=== PATIENT | male | born 1965 | race African-American/Black ===

== ENCOUNTER 2020-03-20 10:04 | Outpatient (CLI) | payer MEDICARE, SELFPAY ==
[2020-03-20 10:34] LABS: Basophils Absolute Auto 0.1 K/mm3 (0.0-0.1); Basophils Percent Auto 0.9 % (0.2-1.2); Eosinophils Absolute Auto 0.1 K/mm3 (0-0.3); Eosinophils Percent Auto 1.5 % (0-4.4); Hematocrit 38.6 % (42.0-52.0); Hemoglobin 12.9 g/dL (14.0-18.0); Immature Granulocyte Absolute 0.01 K/mm3 (0.00-0.031); Immature Granulocyte Percent A 0.2 % (0-0.5); Lymphocytes Absolute Auto 1.81 K/mm3 (0.9-3.2); Lymphocytes Percent Auto 33.6 % (18.3-44.2); Mean Corpuscular HGB Conc 33.4 g/dl (32-36); Mean Corpuscular Hemoglobin 32.8 pg (26-34); Mean Corpuscular Volume 98.2 fl (80-100); Mean Platelet Volume 9.8 fl (7.4-10.4); Monocytes Absolute Auto 0.5 K/mm3 (0.1-0.6); Monocytes Percent Auto 9.5 % (2.6-8.5); Neutrophils Absolute Auto 2.9 K/mm3 (1.3-6.7); Neutrophils Percent Auto 54.3 % (45.5-73.1); Platelet Count Result 322 k/mm3 (150-375); Red Blood Count 3.93 M/mm3 (4.6-6.20); Red Cell Distribution Width 13.9 % (11.5-14.5); White Blood Count 5.4 K/mm3 (4.5-10.0)
[2020-03-20 10:43] LABS: INR 1.1; Prothrombin Time 14.3 Seconds (11.1-14.7)
[2020-03-20 10:49] LABS: Alanine Aminotransferase 86 U/L (4-50); Albumin Level 3.8 g/dL (3.5-5.1); Alkaline Phosphatase 159 U/L (38-126); Anion Gap 9 mmol/L (8-16); Aspartate Amino Transferase 137 U/L (17-59); Bilirubin,Total 0.5 mg/dL (0.2-1.3); Blood Urea Nitrogen 12 mg/dL (9-20); Calcium 8.4 mg/dL (8.4-10.2); Carbon Dioxide 30 mmol/L (22-30); Chloride 100 mmol/L (98-107); Estimated Glomerular Filt Rate > 60; Glucose 110 mg/dL (75-110); Potassium 3.5 mmol/L (3.4-5.0); Sodium 139 mmol/L (137-145)
[2020-03-20 11:05] LABS: Iron 53 ug/dL (49-181)
[2020-03-20 11:14] LABS: Percent Iron Saturation 21 % (20-50)
[2020-03-20 11:37] LABS: Hepatitis B Surface Antigen Negative (Negative)
[2020-03-20 11:42] LABS: HAV RESULT Negative (Negative); Hepatitis B Core IgM Result Negative (Negative)
[2020-03-20 11:54] LABS: Hepatitis C Virus Antibody Negative (Negative)
[2020-03-24 12:39] LABS: Mitochondrial (M2) Ab (IgG) <=20.0 U (<=20.0)
[2020-03-24 13:25] LABS: Ceruloplasmin 28 mg/dL (18-36)
[2020-03-25 11:50] LABS: Tissue Transglutaminase IgA Ab 1 U/mL (<4); Tissue Transglutaminase IgG Ab 4 U/mL (<6)
[2020-03-27 15:07] LABS: ALT 66 U/L (9-46); Alpha-2-Macroglobulin 225 mg/dL (106-279); Apolipoprotein A1 232 mg/dL (94-176); Fibrosis Score 0.43; Fibrosis Stage F1-F2; GGT 697 U/L (3-85); Haptoglobin 96 mg/dL (43-212); Necroinflammat Act Grade A1-A2; Total Bilirubin 0.5 mg/dL (0.2-1.2)
== END 2020-03-20 10:05 | disposition home or self-care (01) ==
LOC: ANHLAB 10:08
PROVIDERS: PCP Internal Medicine Gastroenterology; Visit Provider Internal Medicine Gastroenterology
DX: R74.8 Abnormal levels of other serum enzymes (principal); R10.9 Unspecified abdominal pain
CPT/HCPCS: 36415; 80053; 80074; 81596; 82104; 82390; 82728; 83516; 83520; 83540; 83550; 85025; 85610; 86038

== ENCOUNTER 2024-03-23 09:26 | Outpatient (CLI) | payer MEDICARE, SELFPAY ==
--- NOTE | ~2024-03-23 | XR_ITS ---
Right Knee Technique: AP, lateral, and oblique views were obtained. Clinical History: Pain Findings: No fracture or dislocation is seen. Osseous alignment is anatomic. Joint spaces are preserv ed without degenerative or erosive change. Soft tissues are unremarkable. No joint effusion is seen. Impression: Unremarkable right knee radiographs. Reviewed, dictated and finalized at location . Impression: Unremarkable right knee radiographs.
--- NOTE | ~2024-03-23 | XR_ITS ---
AP view of the pelvis and and AP and lateral views of the right hip Clinical history: Pain Findings: No acute fracture or dislocation is seen. Osseous alignment is anatomic. Bilateral hip and SI joint spaces are preserved. Soft tissues are unremarkable. Impression: No significant abnormality is seen. Reviewed, dictated and finalized at [facility]. Impression: No significant abnormality is seen.
== END 2024-03-23 09:27 | disposition home or self-care (01) ==
PROVIDERS: Visit Provider Physician Assistant Surgical
DX: M25.551 Pain in right hip (principal); M25.561 Pain in right knee
CPT/HCPCS: 73502; 73564

== ENCOUNTER 2024-07-02 10:48 | Outpatient (CLI) | payer MEDICARE, SELFPAY ==
--- NOTE | ~2024-07-02 | XR_ITS ---
EXAMINATION: XR lumbar spine min 4V DATE: 07/02/2024 11:12 INDICATION: Radiculopathy, lumbar region. Low back pain. Numbness in the legs. TECHNIQUE: 5 views of lumbar spine were obtained. COMPARISON: Chest 2 views 06/01/2017 FINDINGS: S1 is a transitional segment. There is 3 degrees levocurvature of lumbar spine. There is 3 mm anterolisthesis of L4 on L5 and 3 mm retrolisthesis of L5 on S1. Vertebral body heights are normal . There is mildly decreased disc height at L3-L4 and severely decreased disc height from L4-L5 throug h S1-S2. There is multilevel facet joint osteoarthritis, severe in lower lumbar spine. IMPRESSION: 1. Severe lumbar spondylosis. Reviewed, dictated and finalized at location A. [employer]
== END 2024-07-02 10:49 | disposition home or self-care (01) ==
PROVIDERS: PCP Orthopaedic Surgery; Visit Provider Orthopaedic Surgery
DX: M54.16 Radiculopathy, lumbar region (principal); M47.816 Spondylosis without myelopathy or radiculopathy, lumbar region
CPT/HCPCS: 72110

== ENCOUNTER 2025-02-28 10:55 | Inpatient (IN) | payer MEDICARE, MEDICAID, SELFPAY ==
[2025-02-28] VITALS (10 sets, daily range): BP systolic 125–203; BP diastolic 71–110; PULSE 69–104; RESP 14–19; TEMP 36.6–36.9; O2SAT 97–100; BMI 16.9
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
--- NOTE | ~2025-02-28 | XR_ITS ---
EXAMINATION: XR chest 2V, 03/01/2025 8:15 CDT HISTORY: weight loss, smoker COMPARISON: No comparisons available. Technique: 2 views obtained. Findings: The lungs are clear, no effusion. No pneumothorax. Heart is normal size. Mediastinal and hilar contours are within normal limits. Bony thorax no acute abnormality. Impression: No acute cardiopulmonary abnormality. Reviewed, dictated and finalized at location P. Impression: No acute cardiopulmonary abnormality.
[2025-02-28 11:45] LABS: Hematocrit 39.6 % (42.0-52.0); Hemoglobin 12.9 g/dL (14.0-18.0); Immature Granulocyte Percent A 0.4 % (0-0.5); Lymphocytes Absolute Auto 0.89 K/mm3 (0.9-3.2); Mean Corpuscular HGB Conc 32.6 g/dl (32-36); Mean Corpuscular Hemoglobin 33.9 pg (26-34); Mean Corpuscular Volume 104.2 fl (80-100); Nucleated Red Blood Cells Absolute Auto 0.000 K/mm3 (0.0-0.012); Nucleated Red Blood Cells Perc 0.0 % (0.0-0.2); Platelet Count Result 299 k/mm3 (150-375); Red Blood Count 3.80 M/mm3 (4.6-6.20); White Blood Count 8.5 K/mm3 (4.5-10.0)
[2025-02-28 11:57] LABS: Alanine Aminotransferase 9 U/L (6-50); Albumin Level 3.7 g/dL (3.5-5.1); Alkaline Phosphatase 74 U/L (38-126); Anion Gap 12 mmol/L (4-12); Aspartate Amino Transferase 24 U/L (17-59); Bilirubin,Total 0.9 mg/dL (0.2-1.3); Blood Urea Nitrogen 7 mg/dL (9-20); Calcium 8.2 mg/dL (8.4-10.2); Carbon Dioxide 23 mmol/L (22-30); Chloride 98 mmol/L (98-107); Estimated CRCL calculation 83 ml/min; Estimated Glomerular Filt Rate > 60; Glucose 107 mg/dL (65-110); Lipase 474 U/L (23-300); Potassium 3.8 mmol/L (3.4-5.0); Sodium 133 mmol/L (137-145); Total Protein 7.9 g/dL (6.3-8.2)
--- NOTE | 2025-02-28 13:39 | ED.GENADULT ---
HPI - General Adult General Chief complaint: Abdominal Pain Stated complaint: abdominal pain Time Seen by Provider: 02/28/25 13:17 History of Present Illness HPI narrative: 59-year-old male with history alcoholism presents to the emergency department for evaluation for persistent abdominal pain consistent with previous episodes of pancreatitis. Patient states that he did quit drinking alcohol approximately 3 days ago. Patient did express interest in quitting alcohol completely. Patient has had approximately 40 lb of weight loss in the last 3 months. Patient has had severe muscular atrophy and is very cachectic looking at evaluation. Patient states he has had decreased p.o. intake and has total loss of appetite. Patient states when he tries to drink Ensure milkshakes that he has persistent nausea and vomiting. Related Data Home Medications ?Medication ?Instructions ?Recorded ?Confirmed ?Last Taken ?Type albuterol sulfate 2.5 mg/3 mL 2.5 mg inhalation Q4-6H PRN 03/10/20 02/28/25 Unknown History (0.083 %) solution for nebulization shortness of breath or wheezing multivitamin 1 tablet PO DAILY 03/10/20 02/28/25 Unknown History oxycodone-acetaminophen 5 mg-325 ml PO .every 6 hrs PRN severe pain 03/10/20 09/23/24 Unknown History mg/5 mL oral solution (scale score 7-10) losartan 50 mg tablet 50 mg PO DAILY 09/21/24 02/28/25 Unknown History Allergies Allergy/AdvReac Type Severity Reaction Status Date / Time No Known Allergies Allergy Verified 02/28/25 14:32 Review of Systems Review of Systems: All systems reviewed & are unremarkable except as noted in HPI and below PMFSH Past Medical History Medical History Easy bruising Poor circulation Migraine Asthma Mood disorder Depression Macrocytic anemia Frequent loose stools Alcohol dependence HTN (hypertension) Hepatic steatosis Elevated liver enzymes Family History Family History Father Cancer Gout Hypertension Mother Cancer Asthma Hypertension Social History Social History Smoking status: Current every day smoker Tobacco type: cigarettes Second hand tobacco smoke exposure: Yes Alcohol intake: former Substance use: never Do You Feel Safe in your Home?: Yes Lack of Transportation: No Lack of Food: Never True Current Housing: I Have Housing Concerned About Future Housing: No Difficulty Paying Gas/Electric Bills: No Difficulty Paying for Meds: No Currently Unemployed: No Education: High School Diploma/GED Difficulty w/ Childcare or Family Care: No Living arrangements: with family Occupation/Education: retired Gender identity (if verbalized by the patient): Male Exam Narrative: APPEARANCE: Cachectic and ill-appearing HEAD: normocephalic, atraumatic. EYES: PERRLA/EOMI, conjunctivae clear. NOSE: Normal no drainage EARS:TMS clear with good light reflex. THROAT: Pharynx clear, no exudate. NECK: Supple. No adenopathy, no masses. RESPIRATORY: Airway patent, respirations nonlabored. Clear to auscultation bilaterally, no rales, rhonchi, wheezing. CARDIOVASCULAR: Regular rate and rhythm without murmurs rubs or gallops. ABDOMINAL: Diffuse epigastric tenderness to palpation MUSCULOSKELETAL: Moves all extremities. Strength/ROM intact, No edema, No calf tenderness. NEURO: Alert. Cranial nerves II through XII intact. Good gait. Good coordination SKIN: Warm, dry. Normal Color Course Vital Signs Vital signs: Vital Signs Temperature 98.5 F 02/28/25 11:30 Pulse Rate 82 02/28/25 11:30 Respiratory Rate 19 02/28/25 11:30 Blood Pressure 145/71 H 02/28/25 11:30 Pulse Oximetry 100 02/28/25 11:30 Oxygen Delivery Room Air 02/28/25 11:30 Temperature 98.5 F 02/28/25 11:30 Pulse Rate 81 02/28/25 18:29 Respiratory Rate 15 02/28/25 18:29 Blood Pressure 169/87 H 02/28/25 18:29 Pulse Oximetry 98 02/28/25 18:29 Oxygen Delivery Room Air 02/28/25 11:30 Medical Decision Making MDM Narrative Medical decision making narrative: 59-year-old male presents to the emergency department for evaluation for weight loss over the last few months along with decreased p.o. intake and abdominal pain. Patient is currently afebrile with no leukocytosis hemoglobin of 12.9. Patient has no significant abnormalities on his CMP but does have an elevated lipase of 474. UA was negative for infection but was +[address] abdomen pelvis shows likely acute on chronic interstitial pancreatitis with a 4 x 7 x 3.4 by 2.4 similar peripherally enhancing fluid collection position between the tail the pancreas in the stomach which could represent a chronic pseudocyst or more recent abscess or acute peripancreatic fluid collection. Extensive diverticulosis of the colon. Patient was treated with 2 L of lactated Ringer's. Patient was provided an IV Dilaudid for pain control. Patient will be admitted for pain control and further evaluation his acute pancreatitis. Patient will also need further evaluation for his persistent weight loss. Weight loss may just be secondary to decreased oral intake. Patient family updated on the plan for admission. Case was discussed with hospitalist patient was accepted for admission. Patient will be admitted to [facility]. Differential Diagnosis Differential Diagnosis: Colitis, diverticulitis, pancreatitis, necrotizing pancreatitis, pseudocyst, abscess, failure to thrive, UTI, malignancy Vital Signs Vital Signs: Vital Signs Temperature 98.5 F 02/28/25 11:30 Pulse Rate 82 02/28/25 11:30 Respiratory Rate 19 02/28/25 11:30 Blood Pressure 145/71 H 02/28/25 11:30 Pulse Oximetry 100 02/28/25 11:30 Oxygen Delivery Room Air 02/28/25 11:30 Temperature 98.5 F 02/28/25 11:30 Pulse Rate 81 02/28/25 18:29 Respiratory Rate 15 02/28/25 18:29 Blood Pressure 169/87 H 02/28/25 18:29 Pulse Oximetry 98 02/28/25 18:29 Oxygen Delivery Room Air 02/28/25 11:30 Lab Data Lab results reviewed: Yes I reviewed the patient's lab results. 02/28/25 11:38 02/28/25 11:38 Labs: Lab Results 02/28/25 02/28/25 Range/Units 11:38 14:33 WBC 8.5 (4.5-10.0) K/mm3 RBC 3.80 L (4.6-6.20) M/mm3 Hgb 12.9 L (14.0-18.0) g/dL Hct 39.6 L (42.0-52.0) % MCV 104.2 H (80-100) fl MCH 33.9 (26-34) pg MCHC 32.6 (32-36) g/dl RDW 14.0 (11.5-14.5) % Plt Count 299 (150-375) k/mm3 MPV 9.6 (7.4-10.4) fl Immature Gran % (Auto) 0.4 (0-0.5) % Neut % (Auto) 78.6 H (45.5-73.1) % Lymph % (Auto) 10.5 L (18.3-44.2) % [place] % (Auto) 9.5 H (2.6-8.5) % Eos % (Auto) 0.8 (0-4.4) % Baso % (Auto) 0.2 (0.2-1.2) % Lymph # (Auto) 0.89 L (0.9-3.2) K/mm3 [place] # (Auto) 0.8 H (0.1-0.6) K/mm3 Eos # (Auto) 0.1 (0-0.3) K/mm3 Baso # (Auto) 0.0 (0.0-0.1) K/mm3 Abs Immat Gran (auto) 0.03 (0.00-0.031) K/mm3 Absolute Neuts (auto) 6.7 (1.3-6.7) K/mm3 Absolute Nucleated RBC 0.000 (0.0-0.012) K/mm3 Nucleated RBC % 0.0 (0.0-0.2) % Sodium 133 L (137-145) mmol/L Potassium 3.8 (3.4-5.0) mmol/L Chloride 98 (98-107) mmol/L Carbon Dioxide 23 (22-30) mmol/L Anion Gap 12 (4-12) mmol/L BUN 7 L D (9-20) mg/dL Creatinine 0.72 (0.7-1.3) mg/dL Estim Creat Clear Calc 83 ml/min Estimated GFR > 60 (59 - ) Glucose 107 (65-110) mg/dL Calcium 8.2 L (8.4-10.2) mg/dL Total Bilirubin 0.9 (0.2-1.3) mg/dL AST 24 (17-59) U/L ALT 9 (6-50) U/L Alkaline Phosphatase 74 (38-126) U/L Total Protein 7.9 (6.3-8.2) g/dL Albumin 3.7 (3.5-5.1) g/dL Lipase 474 H (23-300) U/L Urine Color Yellow (Yellow) Urine Appearance Clear (Clear) Urine pH 6.0 (5.0-9.0) Ur Specific [place] 1.024 (1.001-1.035) Urine Protein Trace (Negative) mg/dL Urine Glucose (UA) Negative (Negative) mg/dL Urine Ketones 1+ H (Negative) mg/dL Ur Blood (Man) Negative (Negative) Urine Nitrate Negative (Negative) Urine Bilirubin Negative (Negative) Urine Urobilinogen 1.0 (<2.0) mg/dL Leukocyte Esterase Rfl Negative (Negative) NEILDA/UL Urine RBC 0-2 (0-2) /hpf Urine WBC 0-5 (0-3) /hpf Ur Squamous Epith Cells None seen (Few) /hpf Urine Bacteria None seen /hpf Urine Casts 0-2 Imaging Data Radiologist's impression: Impressions Abdomen/Pelvis CT 02/28/25 14:56 IMPRESSION: 1. Likely acute on chronic interstitial pancreatitis with 4.7 x 3.4 x 2.4 similar peripherally enhancing fluid collection positioned between the tail the pancreas and the stomach which could represent a chronic pseudocyst or more recent abscess or acute peripancreatic fluid collection. 2. Extensive diverticulosis throughout the colon. 3. Prostatomegaly. 4. Extensive atherosclerotic disease with segmental occlusion of the left common iliac artery which reconstitutes at the level of the bifurcation and additional severe stenosis at the left common femoral artery. Discharge Plan Discharge Clinical Impression: Pancreatitis, Abnormal weight loss, Muscular atrophy Patient Disposition: Still a Patient Condition: Serious
[2025-02-28 14:44] LABS: Add Urine Microscopic? YES; Appearance Urine Clear (Clear); Glucose Urine UA Negative (Negative); Leukocyte Esterase Ur Negative LEU/UL (Negative); Nitrate Urine Negative (Negative); Non Pathogenic Casts 0-2; Specific Grav Ur 1.024 (1.001-1.035)
[2025-02-28] MEDS: LACTATED RINGERS 1,000 ML 999 ML IV CONT (14:52)
[2025-02-28] MEDS: ONDANSETRON INJ 4 MG/2 ML VIAL IV PUSH ×2 (14:52→21:17)
[2025-02-28] MEDS: HYDROmorphone HCL INJ (*CRX) 1 MG/ML SYR 0.5 MG IV PUSH ×2 (15:57→21:17)
--- NOTE | 2025-02-28 18:39 | PC.NURSE ---
This patient, Willem Woodall, was admitted to [facility] Surg Room 317-01. Patient/family oriented to hospital policies and general routines including ID bracelet, bed and alarms, visiting hours, pain management, procedures, bathroom and other care routines, personal items, smoking policy, room service/diet, and visiting hours. Report called from Bridget in the ER. Information on how to activate the Rapid Response Team has been discussed. Patient/Family are encouraged to report perceived risks to care and to ask questions if they do not understand what they are told or what they should do.
[2025-02-28] MEDS: THIAMINE HCL 200 MG/2 ML VIAL 100 MG IV PUSH (21:27)
[2025-02-28] MEDS: PANTOPRAZOLE SODIUM IV 40 MG VIAL IV PUSH (21:27)
[2025-02-28] MEDS: LACTATED RINGERS 1,000 ML 150 ML IV CONT (21:27)
[2025-02-28] MEDS: FOLIC ACID 1 MG/0.2 ML INJ IV PUSH (21:39)
[2025-03-01 00:31] LABS: Cannabinoid Screen Urine Positive (Negative)
[2025-03-01] MEDS: HYDROmorphone HCL INJ (*CRX) 1 MG/ML SYR 0.5 MG IV PUSH ×3 (02:09→12:12)
[2025-03-01] MEDS: ONDANSETRON INJ 4 MG/2 ML VIAL IV PUSH ×4 (02:09→22:21)
[2025-03-01] MEDS: LACTATED RINGERS 1,000 ML 150 ML IV CONT ×3 (04:30→23:48)
[2025-03-01 05:56] VITALS: BP 173/73; PULSE 103; RESP 16; TEMP 36.3; O2SAT 100
[2025-03-01 07:11] LABS: Hematocrit 39.5 % (42.0-52.0); Hemoglobin 12.9 g/dL (14.0-18.0); Immature Granulocyte Percent A 0.4 % (0-0.5); Lymphocytes Absolute Auto 1.03 K/mm3 (0.9-3.2); Mean Corpuscular HGB Conc 32.7 g/dl (32-36); Mean Corpuscular Hemoglobin 34.3 pg (26-34); Mean Corpuscular Volume 105.1 fl (80-100); Nucleated Red Blood Cells Absolute Auto 0.000 K/mm3 (0.0-0.012); Nucleated Red Blood Cells Perc 0.0 % (0.0-0.2); Platelet Count Result 272 k/mm3 (150-375); Red Blood Count 3.76 M/mm3 (4.6-6.20); White Blood Count 9.7 K/mm3 (4.5-10.0)
[2025-03-01 07:32] LABS: Hypochromasia 1+
[2025-03-01 07:33] LABS: Crenated RBC 1+; Ovalocytes Occasional
[2025-03-01 07:35] LABS: Anion Gap 8 mmol/L (4-12); Blood Urea Nitrogen 5 mg/dL (9-20); CRP 3.9 mg/dL (<1.0); Calcium 8.4 mg/dL (8.4-10.2); Carbon Dioxide 25 mmol/L (22-30); Chloride 98 mmol/L (98-107); Estimated CRCL calculation 85 ml/min; Estimated Glomerular Filt Rate > 60; Glucose 72 mg/dL (65-110); Magnesium 1.2 mg/dL (1.6-2.3); Potassium 4.4 mmol/L (3.4-5.0); Sodium 131 mmol/L (137-145)
[2025-03-01 07:38] LABS: Procalcitonin 0.1 ng/mL; Schistocytes Rare
[2025-03-01 07:42] LABS: Hemoglobin A1C 4.4 % (<5.7)
[2025-03-01 07:52] LABS: Hepatitis B Surface Antigen Negative (Negative)
[2025-03-01 07:58] LABS: HAV RESULT Negative (Negative); Hepatitis B Core IgM Result Negative (Negative)
[2025-03-01 08:03] LABS: Thyroid Stimulating Hormone Reflex 3.000 uIU/mL (0.465-4.68)
--- NOTE | 2025-03-01 08:09 | P.HP_ITS ---
H&P: HPI History of Present Illness Date/Time: 03/01/25 08:09 Chief Complaint: Abdominal Pain Narrative: Willem Woodall is a 59-year-old male with a past medical history of alcohol dependence, hypertension, hepatic steatosis, asthma, migraines, and mood disorder who presents to the hospital with abdominal pain. Patient reports a longstanding history of alcohol abuse and typically drinks about half a pint of Radha but reports that he has not had any drinks the past 3 days. He states that he has been having nausea and upper abdominal discomfort for the past several months, worse over the past few days. Also endorsing associated nausea. Reports that he does not eat very much as he gets full quickly and has lost over 40 lb over the past few months. Denies any chest pain, shortness of breath, dysphagia, reflux, regurgitation, or urinary/bowel changes. Also denies any history of constipation or blood in the stool. Endorses cigarette smoking and marijuana use. ED Workup: 98.5? F, 81 pulse rate, 15 respiratory rate, 98% on room air, 169/87 WBC 8.5, HGB 12.9, HCT 39.6, PLT 299, sodium 133, potassium 3.8, carbon dioxide 23, BUN 7, creatinine 0.72, GFR> 60, LFTs WNL, lipase 474 UA: Not indicative of infection Abdomen/pelvis CT: likely acute on chronic pancreatitis, extensive diverticulosis, prostatomegaly, Extensive atherosclerotic disease with segmental occlusion of the left common iliac artery which reconstitutes at the level of the bifurcation and additional severe stenosis at the left common femoral artery Review of Systems Review of Systems: All systems reviewed & are unremarkable except as noted in HPI and below PMFSH Past Medical History Medical History Easy bruising Poor circulation Migraine Asthma Mood disorder Depression Macrocytic anemia Frequent loose stools Alcohol dependence HTN (hypertension) Hepatic steatosis Elevated liver enzymes Family History Family History Father Cancer Gout Hypertension Mother Cancer Asthma Hypertension Social History Social History Smoking packs per day: 1 Smoking cigarettes per day: 20.0 Smoking status: Current every day smoker Tobacco type: cigarettes Second hand tobacco smoke exposure: Yes Alcohol intake: former Drinks per week: 14 Substance use: never Substance use type: marijuana Do You Feel Safe in your Home?: Yes Lack of Transportation: No Lack of Food: Never True Current Housing: I Have Housing Concerned About Future Housing: No Difficulty Paying Gas/Electric Bills: No Difficulty Paying for Meds: No Currently Unemployed: No Education: High School Diploma/GED Difficulty w/ Childcare or Family Care: No Living arrangements: with family Occupation/Education: retired Gender identity (if verbalized by the patient): Male Spiritual care concerns: No Meds Home Medications and Allergies Home Medications ?Medication ?Instructions ?Recorded ?Confirmed ?Type albuterol sulfate 2.5 mg/3 mL 2.5 mg inhalation Q4-6H PRN 03/10/20 02/28/25 History (0.083 %) solution for nebulization shortness of breat h or wheezing multivitamin 1 tablet PO DAILY 03/10/20 1 History aclidinium bromide 400 1 inh inhalation Q12H #1 ea 05/05/20 02/28/25 Rx mcg/actuation breath activated powder inhaler (Tudorza Pressair) albuterol sulfate 90 mcg/actuation 2 inh inhalation Q4 H PRN shortness 05/05/20 02/28/25 Rx aerosol inhaler (Ventolin HFA) of breath or wheezing # 8.5 grams nicotine 21 mg/24 hr daily 1 patch transdermal DAILY # 28 ea 05/05/20 02/28/25 Rx transdermal patch nicotine 1 patch transdermal DAILY #5 6 05/05/20 02/28/25 Rx 21mg/24hr-14mg/24hr-7mg/24hr daily patches transderm patches,sequentl losartan 50 mg tablet 50 mg PO DAILY 09/21/2402/14 History oxycodone-acetaminophen 7.5 mg-325 1 tablet PO BID PRN pain 02/28/25 02/28/25 History mg tablet Allergies Allergy/AdvReac Type Severity Reaction Status Date / Time No Known Allergies Allergy Verified 02/28/25 14:32 Vital Signs Vital Signs - 24 hr 02/28/25 11:30 02/28/25 14:10 02/28/25 14:23 Temperature 98.5 F Pulse Rate 82 Respiratory Rate 19 Blood Pressure 145/71 H Pulse Oximetry 100 100 98 Oxygen Delivery Room Air 02/28/25 14:30 02/28/25 14:32 02/28/25 15:31 Temperature Pulse Rate 76 69 81 Respiratory Rate 14 16 19 Blood Pressure 203/103 H 203/103 H 183/93 H Pulse Oximetry 100 100 100 Oxygen Delivery 02/28/25 16:01 02/28/25 18:29 02/28/25 20:00 Temperature Pulse Rate 81 104 H Respiratory Rate 15 18 Blood Pressure 185/110 H 169/87 H Pulse Oximetry 99 98 97 Oxygen Delivery Room Air 02/28/25 21:26 03/01/25 05:56 Temperature 97.9 F 97.4 F L Pulse Rate 104 H 103 H Respiratory Rate 18 16 Blood Pressure 125/85 173/73 H Pulse Oximetry 97 100 Oxygen Delivery Exam Narrative: Gen - ill appearing male in no acute respiratory distress who is nontoxic- appearing lying semi recumbent in bed HEENT - normocephalic. Atraumatic. Pupils equal round and reactive. Extraocular motions intact. Sclera clear and anicteric. Nares patent. Oropharynx was clear. No oral lesions. Moist mucous membranes. Neck - neck was supple. No dominant adenopathy, thyromegaly or masses. Chest - lungs are clear to auscultation bilaterally. No wheezes or crackles. CV - heart was regular rate and rhythm. S1-S2. No murmurs gallops or rubs. Abd - diffuse tenderness, abdomen was soft. Nondistended. Positive bowel sounds. No organomegaly or masses. Ext - no clubbing, cyanosis or edema. 2+ DP pulses bilaterally. Neuro - patient is alert and oriented x4. Strength is 5/5 in both upper and lower extremities. Cranial nerves 2-12 are intact. Speech is clear. Psych - normal mood and affect. Patient is pleasant and cooperative. Skin - warm and dry. No rashes noted. H&P: Results Labs Labs: Short CBC 02/28/25 03/01/25 Range/Units 11:38 07:00 WBC 8.5 9.7 (4.5-10.0) K/mm3 Hgb 12.9 L 12.9 L (14.0-18.0) g/dL Hct 39.6 L 39.5 L (42.0-52.0) % Plt Count 299 272 (150-375) k/mm3 [facility] 02/28/25 03/01/25 11:38 07:00 Sodium 133 L 131 L Potassium 3.8 4.4 Chloride 98 98 Carbon Dioxide 23 25 BUN 7 L D 5 L Creatinine 0.72 0.70 Glucose 107 72 Calcium 8.2 L 8.4 Liver Function 02/28/25 Range/Units 11:38 Total Bilirubin 0.9 (0.2-1.3) mg/dL AST 24 (17-59) U/L ALT 9 (6-50) U/L Alkaline Phosphatase 74 (38-126) U/L Albumin 3.7 (3.5-5.1) g/dL Urine 02/28/25 Range/Units 14:33 Urine Color Yellow (Yellow) Urine Appearance Clear (Clear) Urine pH 6.0 (5.0-9.0) Ur Specific [place] 1.024 (1.001-1.035) Urine Protein Trace (Negative) mg/dL Urine Glucose (UA) Negative (Negative) mg/dL Assessment and Plan Assessment and plan (1) Acute on chronic pancreatitis: Code(s): K85.90 - Acute pancreatitis without necrosis or infection, unspecified; K86.1 - Other chronic pancreatitis Status: Acute Assessment and Plan: * Acute on chronic * IVF: LR 150mls/hr * trend lipase, currently: 476 * AST, ALT, total bilirubin wnl. trend LFTs. 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 which reconstitutes at the level of the bifurcation and additional severe stenosis at the left common femoral artery * consultation to dietitian * GI consulted * Presentation more consistent with chronic pancreatitis * Start pancreatic enzyme replacement w/ meals * ETOH cessation * Continue protonix 40mg, supportive management with prn pain and nausea control * Fibrosis panel and INR ordered for hepatic steatosis (2) HTN (hypertension): Code(s): I10 - Essential (primary) hypertension Status: Acute Assessment and Plan: * Patient's blood pressure was reviewed on 03/01 * Blood pressure remains well controlled * Will continue current medications * 173/73 (3) Diverticulosis: Code(s): K57.90 - Diverticulosis of intestine, part unspecified, without perforation or abscess without bleeding Status: Acute Assessment and Plan: * CT Abd/pelvis: Extensive diverticulosis throughout the colon. 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 * Distal pulses intact * Follows with PCP * No acute intervention needed at this time (5) Hypomagnesemia: Code(s): E83.42 - Hypomagnesemia Status: Acute Assessment and Plan: * 10/10: Mg 1.2 * Give 4gm IV magnesium sulfate * Repeat daily labs, continue to monitor * Replace as needed (6) Abnormal weight loss: Code(s): R63.4 - Abnormal weight loss Status: Acute Assessment and Plan: * Could be secondary to excessive ETOH intake/chronic pancreatitis * GI/dietary consulted * Encourage to intake more formed foods along w/ pancreatic enzymes Quality VTE Prophylaxis VTE prophylaxis: mechanical ordered
[2025-03-01 08:12] LABS: HIV 1/2 Ab P24 Ag Result Negative (Negative)
[2025-03-01 08:25] LABS: Alanine Aminotransferase 9 U/L (6-50); Albumin Level 3.7 g/dL (3.5-5.1); Alkaline Phosphatase 73 U/L (38-126); Aspartate Amino Transferase 33 U/L (17-59); Bilirubin,Total 0.8 mg/dL (0.2-1.3); Total Protein 7.8 g/dL (6.3-8.2)
[2025-03-01 09:16] LABS: HCV RETEST 1 0.96 s/c; HCV RETEST 2 0.98 s/c
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
[2025-03-01] MEDS: THIAMINE HCL 200 MG/2 ML VIAL 100 MG IV PUSH (09:44)
[2025-03-01] MEDS: PANTOPRAZOLE SODIUM IV 40 MG VIAL IV PUSH (09:44)
[2025-03-01] MEDS: FOLIC ACID 1 MG/0.2 ML INJ IV PUSH (09:44)
[2025-03-01 11:26] LABS: INR 1.0; Prothrombin Time 13.8 Seconds (11.1-14.7)
[2025-03-01 11:29] VITALS: O2SAT 95
[2025-03-01] MEDS: LIPASE/AMYLASE/PROTEASE 12,000 UNITS CAP 5 CAP PO ×2 (12:12→17:35)
[2025-03-01 13:18] VITALS: BMI 16.9
[2025-03-01 14:00] VITALS: BP 159/94; PULSE 80; RESP 18; TEMP 36.4; O2SAT 100
--- NOTE | 2025-03-01 15:01 | ECG_ITS ---
Test Date: 2025-03-01 15:53:29 Measurements Intervals [place] Rate: 80 P: 58 IN: 170 QRS: 30 QRSD: 88 T: 44 QT: 383 QTc: 444 Interpretive Statements SINUS RHYTHM BASELINE ARTIFACT- I, II, III, AVL NORMAL ECG No previous ECG available for comparison Electronically Signed On 03-01-2025 18:34:17 CDT by Italo Rodriguez D.O.
[2025-03-01] MEDS: MAGNESIUM SULF 4 GM/WATER100ML 4 GM/100 ML BAG IVPB (17:35)
[2025-03-01] MEDS: ACETAMINOPHEN 500 MG TABLET PO ×2 (17:36→22:20)
[2025-03-01] MEDS: LOSARTAN POTASSIUM 50 MG TABLET PO (17:36)
--- NOTE | 2025-03-01 17:42 | PC.NURSE ---
RN clarified Magnesium Sulfate and LR are compatible.
[2025-03-01 20:00] VITALS: PULSE 90; RESP 20; O2SAT 97
[2025-03-01 20:22] VITALS: BP 156/85; PULSE 90; RESP 20; TEMP 37.1; O2SAT 97
[2025-03-01] MEDS: ALBUTEROL SULFATE (*SP) AEROSOL 1 PUFF 2 PUFF INHALATION (22:31)
[2025-03-01 22:32] VITALS: PULSE 80; RESP 20
[2025-03-02 04:55] VITALS: BP 172/94; PULSE 79; RESP 20; TEMP 36.8; O2SAT 99
[2025-03-02] MEDS: IBUPROFEN 400 MG TABLET PO ×2 (05:39→12:20)
[2025-03-02 06:19] LABS: Hematocrit 35.9 % (42.0-52.0); Hemoglobin 11.8 g/dL (14.0-18.0); Immature Granulocyte Percent A 0.4 % (0-0.5); Lymphocytes Absolute Auto 1.03 K/mm3 (0.9-3.2); Mean Corpuscular HGB Conc 32.9 g/dl (32-36); Mean Corpuscular Hemoglobin 34.6 pg (26-34); Mean Corpuscular Volume 105.3 fl (80-100); Nucleated Red Blood Cells Absolute Auto 0.000 K/mm3 (0.0-0.012); Nucleated Red Blood Cells Perc 0.0 % (0.0-0.2); Platelet Count Result 248 k/mm3 (150-375); Red Blood Count 3.41 M/mm3 (4.6-6.20); White Blood Count 7.5 K/mm3 (4.5-10.0)
[2025-03-02] MEDS: LACTATED RINGERS 1,000 ML 150 ML IV CONT ×2 (06:40→20:40)
[2025-03-02 06:50] LABS: Burr Cells Occasional; Hypochromasia Occasional; Macrocytosis 1+ (NORMAL); Schistocytes None Seen
[2025-03-02 06:53] LABS: Alanine Aminotransferase 9 U/L (6-50); Albumin Level 3.2 g/dL (3.5-5.1); Alkaline Phosphatase 62 U/L (38-126); Anion Gap 8 mmol/L (4-12); Aspartate Amino Transferase 32 U/L (17-59); Bilirubin,Total 1.0 mg/dL (0.2-1.3); Blood Urea Nitrogen 4 mg/dL (9-20); Calcium 8.1 mg/dL (8.4-10.2); Carbon Dioxide 26 mmol/L (22-30); Chloride 96 mmol/L (98-107); Estimated CRCL calculation 95 ml/min; Estimated Glomerular Filt Rate > 60; Glucose 75 mg/dL (65-110); Potassium 3.6 mmol/L (3.4-5.0); Sodium 130 mmol/L (137-145); Total Protein 7.1 g/dL (6.3-8.2)
[2025-03-02] MEDS: UMECLIDINIUM BROMIDE 62.5 MCG ELLIPTA 1 PUFF INHALATION (08:11)
[2025-03-02 08:13] VITALS: O2SAT 97
[2025-03-02] MEDS: PANTOPRAZOLE SODIUM IV 40 MG VIAL IV PUSH (09:07)
[2025-03-02] MEDS: THIAMINE HCL 200 MG/2 ML VIAL 100 MG IV PUSH (09:07)
[2025-03-02] MEDS: LIPASE/AMYLASE/PROTEASE 12,000 UNITS CAP 5 CAP PO ×3 (09:08→16:16)
[2025-03-02] MEDS: MULTIVITAMINS THERAPEUTIC TAB (*BKC) 1 TABLET PO (09:08)
[2025-03-02] MEDS: NICOTINE (*PBKC) 21 MG PATCH 1 PATCH TRANSDERM (09:09)
[2025-03-02] MEDS: FOLIC ACID 1 MG/0.2 ML INJ IV PUSH (09:10)
[2025-03-02] MEDS: LOSARTAN POTASSIUM 50 MG TABLET PO (12:20)
--- NOTE | 2025-03-02 13:16 | P.PNIM_ITS ---
Progress Note: A&P Assessment and Plan (1) Acute on chronic pancreatitis: Code(s): K85.90 - Acute pancreatitis without necrosis or infection, unspecified; K86.1 - Other chronic pancreatitis Status: Acute Assessment and Plan: * Present with abdominal pain which is consistent with acute on chronic pancreatitis with pseudocyst. MRCP as outpatient to evaluate the size of pseudocyst * CT abd/pelvis: Likely acute on chronic pancreatitis, extensive diverticulosis, prostatomegaly, Extensive atherosclerotic disease with segmental occlusion of the left common iliac artery which reconstitutes at the level of the bi furcation and additional severe stenosis at the left common femoral artery * Liver enzymes was normal limit * IVF: LR 125mls/hr, encourage oral intake, alcohol cessation, and in folate * Zofran prn for nausea * consultation to dietitian * GI consulted, appreciate rec * continue pancreatic enzyme replacement with meals including after discharge * Alcohol cessation counseling * Continue Protonix 40 mg p.o. * Fibrosis panel and INR ordered for hepatic steatosis (2) HTN (hypertension): Code(s): I10 - Essential (primary) hypertension Status: Acute Assessment and Plan: * Continue losartan * BP goal 130/80 * ok to use prn labetalol (3) Diverticulosis: Code(s): K57.90 - Diverticulosis of intestine, part unspecified, without perforation or abscess without bleeding Status: Acute Assessment and Plan: * CT Abd/pelvis: Extensive diverticulosis throughout the colon. 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 * Distal pulses intact * Follows with PCP * No acute intervention needed at this time (5) Hypomagnesemia: Code(s): E83.42 - Hypomagnesemia Status: Acute Assessment and Plan: * 10/10: Mg 1.2 * Give 4gm IV magnesium sulfate * Repeat daily labs, continue to monitor * Replace as needed (6) Abnormal weight loss: Code(s): R63.4 - Abnormal weight loss Status: Acute Assessment and Plan: * Could be secondary to excessive ETOH intake/chronic pancreatitis * GI/dietary consulted * Encourage to intake more formed foods along w/ pancreatic enzymes Time Spent With Patient Time: 35 minutes Subjective Date/time seen: 03/02/25 13:16 Interval history: Diet advanced to full liquid. No nausea or vomiting. He complains mild abdominal pain. Will start gabapentin for his neuropathy. at bedside. Review of Systems Review of Systems: All systems reviewed & are unremarkable except as noted in HPI and below Exam Narrative: APPEARANCE: No acute distress, abdominal discomfort. Poor dentition. EYES: EOMI HEENT: Normocephalic, atraumatic, OMM RESPIRATORY: No respiratory distress Clear to auscultation bilaterally with no rhonchi wheezing or rales. CARDIOVASCULAR: RRR, S1 and S2 without murmurs rubs or gallops. ABDOMINAL: Soft, nontender, nondistended, no rebound or guarding MSK: Motor strength within normal limits NEURO: Awake and alert. Following commands, speech normal, no focal deficits SKIN:: Warm, dry. No rashes lesions or abrasions PSYCHIATRIC: Normal affect/mood Objective Data Vital Signs Vital Signs: Vital Signs - 24 hr 03/01/25 14:00 03/01/25 20:00 03/01/25 20:22 Temperature 36.4 C L 37.1 C Pulse Rate 80 90 90 Respiratory Rate 18 20 20 Blood Pressure 159/94 H 156/85 H Pulse Oximetry 100 97 97 Oxygen Delivery Room Air 03/01/25 22:32 03/02/25 04:55 03/02/25 08:13 Temperature 36.8 C Pulse Rate 80 79 Respiratory Rate 20 20 Blood Pressure 172/94 H Pulse Oximetry 99 97 Oxygen Delivery Room Air Intake/Output Intake/Output: Intake & Output 02/27/25 02/28/25 03/01/25 03/02/25 23:59 23:59 23:59 23:59 Intake Total 1000 4090 1810 Output Total 700 525 Balance 1000 3390 1285 Meds/Results Medications: Active Medications Generic Name Dose Route Start Last Admin Trade Name Freq PRN Reason Stop Dose Admin Acetaminophen 500 mg 03/01/25 15:06 03/01/25 22:20 Acetaminophen 500 Mg Tablet PO 500 mg Q4H PRN Administration Mild Pain (1-3) or Fever Albuterol 2.5 mg 03/01/25 14:46 Albuterol Sulfate Neb 2.5 Mg/3 Ml Inh INHALATION Q4-6H PRN Shortness Of Breath Or Wheezing Albuterol 2 puff 03/01/25 14:46 03/01/25 22:31 Albuterol Sulfate (*Sp) Aerosol 1 Puff INHALATION 2 puff Q4H PRN Administration Shortness Of Breath Or Wheezing Lipase/Protease/Amylase 5 cap 03/01/25 12:00 03/02/25 12:21 Lipase/Amylase/Protease 12,000 Units Cap PO 5 cap TIDWM NGUYEN Administration Folic Acid 1 mg 02/28/25 21:20 03/02/25 09:10 Folic Acid 1 Mg/0.2 Ml Inj IV PUSH 1 mg QAM NGUYEN Administration Lactated Ringer's 1,000 mls @ 150 mls/hr 02/28/25 21:15 03/02/25 06:40 Lr - Lactated Ringers Iv IV CONT 150 mls/hr .Q6H40M NGUYEN Administration Ibuprofen 400 mg 03/01/25 15:06 03/02/25 12:20 Ibuprofen 400 Mg Tablet PO 400 mg Q6H PRN Administration Pain Rated 1-3 Losartan Potassium 50 mg 03/01/25 15:10 03/02/25 12:20 Losartan Potassium 50 Mg Tablet PO 50 mg DAILY NGUYEN Administration Miscellaneous Information 1 each 03/02/25 00:01 Tylenol/Ibuprofen--Duplicate Pain Scales XX 04/01/25 00:00 CLARIFY [facility] [place] Miscellaneous Information 1 each 03/02/25 00:01 Clarify Nicotine Patch--Med. Rec Comments State To Start With 42 Mg And Wean Down Per Prot XX 04/01/25 00:00 CLARIFY [facility] [place] Multivitamins Therapeutic 1 tablet 03/01/25 09:00 03/02/25 09:08 Multivitamins Therapeutic Tab (*Bkc) PO 1 tablet QAM NGUYEN Administration Nicotine 1 patch 03/02/25 09:00 Nicotine (*Pbkc) 21 Mg Patch TRANSDERM DAILY [facility] [place] Nicotine 1 patch 03/02/25 09:00 03/02/25 09:09 Nicotine (*Pbkc) 21 Mg Patch TRANSDERM 1 patch DAILY NGUYEN Administration Ondansetron HCl 4 mg 02/28/25 16:08 03/01/25 22:21 Ondansetron Inj 4 Mg/2 Ml Vial IV PUSH 4 mg Q4H PRN Administration Nausea Pantoprazole Sodium 40 mg 02/28/25 21:15 03/02/25 09:07 Pantoprazole Sodium Iv 40 Mg Vial IV PUSH 40 mg QAM NGUYEN Administration Thiamine HCl 100 mg 02/28/25 21:20 03/02/25 09:07 Thiamine Hcl 200 Mg/2 Ml Vial IV PUSH 100 mg QAM NGUYEN Administration Umeclidinium [place] 1 puff 03/02/25 09:00 03/02/25 08:11 Umeclidinium [place] 62.5 Mcg Ellipta INHALATION 1 puff DAILY NGUYEN Administration Radiology Results: ITS Impressions Abdomen/Pelvis CT 02/28/25 14:56 IMPRESSION: 1. Likely acute on chronic interstitial pancreatitis with 4.7 x 3.4 x 2.4 similar peripherally enhancing fluid collection positioned between the tail the pancreas and the stomach which could represent a chronic pseudocyst or more recent abscess or acute peripancreatic fluid collection. 2. Extensive diverticulosis throughout the colon. 3. Prostatomegaly. 4. Extensive atherosclerotic disease with segmental occlusion of the left common iliac artery which reconstitutes at the level of the bifurcation and additional severe stenosis at the left common femoral artery. Chest X-Ray 03/01/25 08:32 Impression: No acute cardiopulmonary abnormality. Labs Labs: Laboratory Results - last 24 hr 03/02/25 05:53 WBC 7.5 RBC 3.41 L Hgb 11.8 L Hct 35.9 L MCV 105.3 H MCH 34.6 H MCHC 32.9 RDW 13.5 Plt Count 248 MPV 10.3 Immature Gran % (Auto) 0.4 Neut % (Auto) 70.1 Lymph % (Auto) 13.8 L [place] % (Auto) 14.1 H Eos % (Auto) 1.2 Baso % (Auto) 0.4 Lymph # (Auto) 1.03 [place] # (Auto) 1.1 H Eos # (Auto) 0.1 Baso # (Auto) 0.0 Abs Immat Gran (auto) 0.03 Absolute Neuts (auto) 5.2 Absolute Nucleated RBC 0.000 Band Neutrophils % Not Reportable Nucleated RBC % 0.0 Platelet Estimate Adequate Hypochromasia Occasional Macrocytosis 1+ [place] Cells Occasional Schistocytes None seen Sodium 130 L Potassium 3.6 Chloride 96 L Carbon Dioxide 26 Anion Gap 8 BUN 4 L Creatinine 0.62 L Estim Creat Clear Calc 95 Estimated GFR > 60 Glucose 75 Calcium 8.1 L Total Bilirubin 1.0 AST 32 ALT 9 Alkaline Phosphatase 62 Total Protein 7.1 Albumin 3.2 L Quality VTE Prophylaxis VTE prophylaxis: mechanical ordered
[2025-03-02 14:56] VITALS: BP 161/80; PULSE 80; RESP 16; TEMP 36.3; O2SAT 98
[2025-03-02] MEDS: GABAPENTIN 300 MG CAPSULE PO (16:15)
--- NOTE | 2025-03-02 16:34 | WPDGIPROGNO ---
Progress Note: A&P Assessment and Plan (1) Acute on chronic pancreatitis: Code(s): K85.90 - Acute pancreatitis without necrosis or infection, unspecified; K86.1 - Other chronic pancreatitis Status: Acute Assessment and Plan: he is feeling better he is aware that can not drink anymore ct scan showed chronic findings, pancretic cyst can be followed with MRCP ok to advance diet supportive care (2) Malnutrition: Code(s): E46 - Unspecified protein-calorie malnutrition Status: Acute Assessment and Plan: ensure and encourage not to drink alcohol (3) Frequent loose stools: Qualifiers: Diarrhea type: due to malabsorption Qualified Code(s): K90.9 - Intestinal malabsorption, unspecified; R19.7 - Diarrhea, unspecified Code(s): R19.7 - Diarrhea, unspecified Status: Acute Assessment and Plan: probably component of EPI on pancreatic enzymes (4) Upper abdominal pain: Code(s): R10.10 - Upper abdominal pain, unspecified Status: Acute Assessment and Plan: almost gone (5) PAD (peripheral artery disease): Code(s): I73.9 - Peripheral vascular disease, unspecified Status: Acute (6) Alcohol dependence: Qualifiers: Substance use status: unspecified alcohol-induced disorder Qualified Code(s): F10.29 - Alcohol dependence with unspecified alcohol-induced disorder Code(s): F10.20 - Alcohol dependence, uncomplicated Status: Acute Subjective Date/time seen: 03/02/25 16:34 Interval history: pain almost gone and tolerating CL diet overall better at bedside Review of Systems Review of Systems: All systems reviewed & are unremarkable except as noted in HPI and below Exam Const: General: comfortable and no acute distress HENMT: Face/Nose/Sinus: Normal nares present Other: poor dentition Eyes: General: appearance normal, both eyes and all related structures Neck: Neck: no JVD Resp: Auscultation: clear to auscultation bilaterally Cardio: Rate: regular rate Rhythm: regular rhythm GI: Inspection: non-distended GI Palp: Yes Soft to palpation and No Tenderness to palpation present (GI) Auscultation: normal bowel sounds Skin: General skin exam: normal color Neuro: Speech: normal speech Extrem: General: normal to inspection Psych: Mental Status: mental status grossly normal Objective Data Vital Signs Vital Signs: Vital Signs - 24 hr 03/01/25 20:00 03/01/25 20:22 03/01/25 22:32 Temperature 98.8 F Pulse Rate 90 90 80 Respiratory Rate 20 20 20 Blood Pressure 156/85 H Pulse Oximetry 97 97 Oxygen Delivery Room Air 03/02/25 04:55 03/02/25 08:13 03/02/25 14:56 Temperature 98.2 F 97.3 F L Pulse Rate 79 80 Respiratory Rate 20 16 Blood Pressure 172/94 H 161/80 H Pulse Oximetry 99 97 98 Oxygen Delivery Room Air Intake/Output Intake/Output: Intake & Output 02/27/25 02/28/25 03/01/25 03/02/25 23:59 23:59 23:59 23:59 Intake Total 1000 4090 2290 Output Total 700 527 Balance 1000 3390 1763 Meds/Results Medications: Active Medications Generic Name Dose Route Start Last Admin Trade Name Freq PRN Reason Stop Dose Admin Acetaminophen 500 mg 03/01/25 15:06 03/01/25 22:20 Acetaminophen 500 Mg Tablet PO 500 mg Q4H PRN Administration Mild Pain (1-3) or Fever Albuterol 2.5 mg 03/01/25 14:46 Albuterol Sulfate Neb 2.5 Mg/3 Ml Inh INHALATION Q4-6H PRN Shortness Of Breath Or Wheezing Albuterol 2 puff 03/01/25 14:46 03/01/25 22:31 Albuterol Sulfate (*Sp) Aerosol 1 Puff INHALATION 2 puff Q4H PRN Administration Shortness Of Breath Or Wheezing Lipase/Protease/Amylase 5 cap 03/01/25 12:00 03/02/25 16:16 Lipase/Amylase/Protease 12,000 Units Cap PO 5 cap TIDWM NGUYEN Administration Folic Acid 1 mg 02/28/25 21:20 03/02/25 09:10 Folic Acid 1 Mg/0.2 Ml Inj IV PUSH 1 mg QAM NGUYEN Administration Gabapentin 300 mg 03/02/25 17:00 03/02/25 16:15 Gabapentin 300 Mg Capsule PO 300 mg TID NGUYEN Administration Lactated Ringer's 1,000 mls @ 125 mls/hr 02/28/25 21:15 03/02/25 06:40 Lr - Lactated Ringers Iv IV CONT 150 mls/hr .Q8H NGUYEN Administration Ibuprofen 400 mg 03/01/25 15:06 03/02/25 12:20 Ibuprofen 400 Mg Tablet PO 400 mg Q6H PRN Administration Pain Rated 1-3 Labetalol HCl 10 mg 03/02/25 13:26 Labetalol Hcl Inj 100 Mg/20 Ml Vial IV PUSH Q6H PRN SBP>150 Losartan Potassium 50 mg 03/01/25 15:10 03/02/25 12:20 Losartan Potassium 50 Mg Tablet PO 50 mg DAILY NGUYEN Administration Miscellaneous Information 1 each 03/02/25 00:01 Tylenol/Ibuprofen--Duplicate Pain Scales XX 04/01/25 00:00 CLARIFY NGUYEN Miscellaneous Information 1 each 03/02/25 00:01 Clarify Nicotine Patch--Med. Rec Comments State To Start With 42 Mg And Wean Down Per Prot XX 04/01/25 00:00 CLARIFY [facility] Multivitamins Therapeutic 1 tablet 03/01/25 09:00 03/02/25 09:08 Multivitamins Therapeutic Tab (*Bkc) PO 1 tablet QAM NGUYEN Administration Nicotine 1 patch 03/02/25 09:00 Nicotine (*Pbkc) 21 Mg Patch TRANSDERM DAILY NGUYEN Nicotine 1 patch 03/02/25 09:00 03/02/25 09:09 Nicotine (*Pbkc) 21 Mg Patch TRANSDERM 1 patch DAILY NGUYEN Administration Ondansetron HCl 4 mg 02/28/25 16:08 03/01/25 22:21 Ondansetron Inj 4 Mg/2 Ml Vial IV PUSH 4 mg Q4H PRN Administration Nausea Pantoprazole Sodium 40 mg 02/28/25 21:15 03/02/25 09:07 Pantoprazole Sodium Iv 40 Mg Vial IV PUSH 40 mg QAM NGUYEN Administration Thiamine HCl 100 mg 02/28/25 21:20 03/02/25 09:07 Thiamine Hcl 200 Mg/2 Ml Vial IV PUSH 100 mg QAM NGUYEN Administration Umeclidinium [place] 1 puff 03/02/25 09:00 03/02/25 08:11 Umeclidinium [place] 62.5 Mcg Ellipta INHALATION 1 puff DAILY NGUYEN Administration Radiology Results: ITS Impressions Abdomen/Pelvis CT 02/28/25 14:56 IMPRESSION: 1. Likely acute on chronic interstitial pancreatitis with 4.7 x 3.4 x 2.4 similar peripherally enhancing fluid collection positioned between the tail the pancreas and the stomach which could represent a chronic pseudocyst or more recent abscess or acute peripancreatic fluid collection. 2. Extensive diverticulosis throughout the colon. 3. Prostatomegaly. 4. Extensive atherosclerotic disease with segmental occlusion of the left common iliac artery which reconstitutes at the level of the bifurcation and additional severe stenosis at the left common femoral artery. Chest X-Ray 03/01/25 08:32 Impression: No acute cardiopulmonary abnormality. Labs Labs: Laboratory Results - last 24 hr 03/02/25 05:53 WBC 7.5 RBC 3.41 L Hgb 11.8 L Hct 35.9 L MCV 105.3 H MCH 34.6 H MCHC 32.9 RDW 13.5 Plt Count 248 MPV 10.3 Immature Gran % (Auto) 0.4 Neut % (Auto) 70.1 Lymph % (Auto) 13.8 L [place] % (Auto) 14.1 H Eos % (Auto) 1.2 Baso % (Auto) 0.4 Lymph # (Auto) 1.03 [place] # (Auto) 1.1 H Eos # (Auto) 0.1 Baso # (Auto) 0.0 Abs Immat Gran (auto) 0.03 Absolute Neuts (auto) 5.2 Absolute Nucleated RBC 0.000 Band Neutrophils % Not Reportable Nucleated RBC % 0.0 Platelet Estimate Adequate Hypochromasia Occasional Macrocytosis 1+ [place] Cells Occasional Schistocytes None seen Sodium 130 L Potassium 3.6 Chloride 96 L Carbon Dioxide 26 Anion Gap 8 BUN 4 L Creatinine 0.62 L Estim Creat Clear Calc 95 Estimated GFR > 60 Glucose 75 Calcium 8.1 L Total Bilirubin 1.0 AST 32 ALT 9 Alkaline Phosphatase 62 Total Protein 7.1 Albumin 3.2 L
[2025-03-02 17:26] VITALS: BP 138/72
[2025-03-02 19:38] LABS: IFOB Positive Control Positive; Immunochemical Fecal Occult Bl Positive (N)
[2025-03-02 21:30] VITALS: O2SAT 98
[2025-03-02 22:00] VITALS: BP 141/78; PULSE 82; RESP 18; TEMP 36.7; O2SAT 98
[2025-03-03] VITALS (7 sets, daily range): BP systolic 148–180; BP diastolic 74–84; PULSE 72–86; RESP 18–20; TEMP 36.1–36.5; O2SAT 97–100
[2025-03-03] MEDS: IBUPROFEN 400 MG TABLET PO (00:13)
[2025-03-03] MEDS: LACTATED RINGERS 1,000 ML 150 ML IV CONT (05:02)
[2025-03-03 06:19] LABS: Hematocrit 31.5 % (42.0-52.0); Hemoglobin 10.5 g/dL (14.0-18.0); Immature Granulocyte Percent A 0.4 % (0-0.5); Lymphocytes Absolute Auto 1.02 K/mm3 (0.9-3.2); Mean Corpuscular HGB Conc 33.3 g/dl (32-36); Mean Corpuscular Hemoglobin 34.2 pg (26-34); Mean Corpuscular Volume 102.6 fl (80-100); Nucleated Red Blood Cells Absolute Auto 0.000 K/mm3 (0.0-0.012); Nucleated Red Blood Cells Perc 0.0 % (0.0-0.2); Platelet Count Result 243 k/mm3 (150-375); Red Blood Count 3.07 M/mm3 (4.6-6.20); White Blood Count 5.0 K/mm3 (4.5-10.0)
[2025-03-03 06:39] LABS: Alanine Aminotransferase 12 U/L (6-50); Albumin Level 2.5 g/dL (3.5-5.1); Alkaline Phosphatase 53 U/L (38-126); Anion Gap 4 mmol/L (4-12); Aspartate Amino Transferase 28 U/L (17-59); Bilirubin,Total 0.4 mg/dL (0.2-1.3); Blood Urea Nitrogen 3 mg/dL (9-20); Calcium 7.6 mg/dL (8.4-10.2); Carbon Dioxide 27 mmol/L (22-30); Chloride 95 mmol/L (98-107); Estimated CRCL calculation 92 ml/min; Estimated Glomerular Filt Rate > 60; Glucose 112 mg/dL (65-110); Potassium 3.7 mmol/L (3.4-5.0); Sodium 126 mmol/L (137-145); Total Protein 5.9 g/dL (6.3-8.2)
[2025-03-03] MEDS: UMECLIDINIUM BROMIDE 62.5 MCG ELLIPTA 1 PUFF INHALATION (08:28)
[2025-03-03] MEDS: ALBUTEROL SULFATE (*SP) AEROSOL 1 PUFF 2 PUFF INHALATION (08:33)
[2025-03-03] MEDS: LIPASE/AMYLASE/PROTEASE 12,000 UNITS CAP 5 CAP PO ×3 (08:50→16:32)
[2025-03-03] MEDS: ACETAMINOPHEN 500 MG TABLET PO ×2 (08:50→21:07)
[2025-03-03] MEDS: MULTIVITAMINS THERAPEUTIC TAB (*BKC) 1 TABLET PO (08:51)
[2025-03-03] MEDS: LOSARTAN POTASSIUM 50 MG TABLET PO ×2 (08:51→16:30)
[2025-03-03] MEDS: GABAPENTIN 300 MG CAPSULE PO ×3 (08:51→16:30)
[2025-03-03] MEDS: PANTOPRAZOLE SODIUM IV 40 MG VIAL IV PUSH (08:57)
[2025-03-03] MEDS: THIAMINE HCL 200 MG/2 ML VIAL 100 MG IV PUSH (08:57)
[2025-03-03] MEDS: NICOTINE (*PBKC) 21 MG PATCH 1 PATCH TRANSDERM (08:58)
[2025-03-03] MEDS: FOLIC ACID 1 MG/0.2 ML INJ IV PUSH (09:00)
--- NOTE | 2025-03-03 11:13 | P.PNIM_ITS ---
Progress Note: A&P Assessment and Plan (1) Acute on chronic pancreatitis: Code(s): K85.90 - Acute pancreatitis without necrosis or infection, unspecified; K86.1 - Other chronic pancreatitis Status: Acute Assessment and Plan: * Present with abdominal pain which is consistent with acute on chronic pancreatitis with pseudocyst. MRCP as outpatient to evaluate the size of pseudocyst * CT abd/pelvis: Likely acute on chronic pancreatitis, extensive diverticulosis, prostatomegaly, Extensive atherosclerotic disease with segmental occlusion of the left common iliac artery which reconstitutes at the level of the bi furcation and additional severe stenosis at the left common femoral artery * Liver enzymes was normal limit * Discontinue IV fluid, encourage oral intake, alcohol cessation, and in folate * Zofran prn for nausea * consultation to dietitian * GI consulted, appreciate rec * continue pancreatic enzyme replacement with meals including after discharge * Alcohol cessation counseling * Continue Protonix 40 mg p.o. * Fibrosis panel pending (2) HTN (hypertension): Code(s): I10 - Essential (primary) hypertension Status: Acute Assessment and Plan: * Continue losartan * BP goal 130/80 * ok to use prn labetalol (3) Diverticulosis: Code(s): K57.90 - Diverticulosis of intestine, part unspecified, without perforation or abscess without bleeding Status: Acute Assessment and Plan: * CT Abd/pelvis: Extensive diverticulosis throughout the colon. * Monitor vital signs, I&Os, track stool output, watch for bloody stools, neuro status and patient is a fall risk * Monitor serum electrolytes and CBC * PRN pain control (4) Poor circulation: Code(s): R09.89 - Other specified symptoms and signs involving the circulatory and respiratory systems Status: Acute Assessment and Plan: * CT Abd/pelvis: Extensive atherosclerotic disease with segmental occlusion of the left common iliac artery which reconstitutes at the level of the bifurcation and additional severe stenosis at the left common femoral artery. * Distal pulses intact * Follows with PCP * No acute intervention needed at this time (5) Hypomagnesemia: Code(s): E83.42 - Hypomagnesemia Status: Acute Assessment and Plan: * 10/10: Mg 1.2 * Give 4gm IV magnesium sulfate * Repeat daily labs, continue to monitor * Replace as needed (6) Abnormal weight loss: Code(s): R63.4 - Abnormal weight loss Status: Acute Assessment and Plan: * Could be secondary to excessive ETOH intake/chronic pancreatitis * GI/dietary consulted * Encourage to intake more formed foods along w/ pancreatic enzymes (7) Hyponatremia: Code(s): E87.1 - Hypo-osmolality and hyponatremia Status: Acute Assessment and Plan: Likely 2/2 poor oral intake. Encourage oral intake Dc IVF BMP at noon Plan if he tolerates general diet, will discharge him home. Pain control with gabapentin Discontinue NSAID Time Spent With Patient Time: 35 minutes Subjective Date/time seen: 03/03/25 11:13 Interval history: Abdominal pain improved. He denies nausea and vomiting. He tolerated for full liquid diet. Chief complaint due to overnight to noise. Review of Systems Review of Systems: All systems reviewed & are unremarkable except as noted in HPI and below Exam Narrative: APPEARANCE: No acute distress, abdominal discomfort. Poor dentition. EYES: EOMI HEENT: Normocephalic, atraumatic, OMM RESPIRATORY: No respiratory distress Clear to auscultation bilaterally with no rhonchi wheezing or rales. CARDIOVASCULAR: RRR, S1 and S2 without murmurs rubs or gallops. ABDOMINAL: Soft, nontender, nondistended, no rebound or guarding MSK: no issues NEURO: Awake and alert. Following commands, speech normal, no focal deficits SKIN:: Warm, dry. No rashes lesions or abrasions PSYCHIATRIC: Congrent mood Objective Data Vital Signs Vital Signs: Vital Signs - 24 hr 03/02/25 14:56 03/02/25 17:26 03/02/25 21:30 Temperature 36.3 C L Pulse Rate 80 Respiratory Rate 16 Blood Pressure 161/80 H 138/72 Pulse Oximetry 98 98 Oxygen Delivery Room Air 03/02/25 22:00 03/03/25 06:00 03/03/25 08:29 Temperature 36.7 C 36.5 C Pulse Rate 82 72 Respiratory Rate 18 20 Blood Pressure 141/78 H 148/74 H Pulse Oximetry 98 100 97 Oxygen Delivery Room Air Intake/Output Intake/Output: Intake & Output 02/28/25 03/01/25 03/02/25 03/03/25 23:59 23:59 23:59 23:59 Intake Total 1000 4090 3780 1720 Output Total 700 977 700 Balance 1000 3390 2803 1020 Meds/Results Medications: Active Medications Generic Name Dose Route Start Last Admin Trade Name Freq PRN Reason Stop Dose Admin Acetaminophen 500 mg 03/01/25 15:06 03/03/25 08:50 Acetaminophen 500 Mg Tablet PO 500 mg Q4H PRN Administration Mild Pain (1-3) or Fever Albuterol 2.5 mg 03/01/25 14:46 Albuterol Sulfate Neb 2.5 Mg/3 Ml Inh INHALATION Q4-6H PRN Shortness Of Breath Or Wheezing Albuterol 2 puff 03/01/25 14:46 03/03/25 08:33 Albuterol Sulfate (*Sp) Aerosol 1 Puff INHALATION 2 puff Q4H PRN Administration Shortness Of Breath Or Wheezing Lipase/Protease/Amylase 5 cap 03/01/25 12:00 03/03/25 08:50 Lipase/Amylase/Protease 12,000 Units Cap PO 5 cap TIDWM NGUYEN Administration Folic Acid 1 mg 02/28/25 21:20 03/03/25 09:00 Folic Acid 1 Mg/0.2 Ml Inj IV PUSH 1 mg QAM NGUYEN Administration Gabapentin 300 mg 03/02/25 17:00 03/03/25 08:51 Gabapentin 300 Mg Capsule PO 300 mg TID NGUYEN Administration Lactated Ringer's 1,000 mls @ 125 mls/hr 02/28/25 21:15 03/03/25 08:51 Lr - Lactated Ringers Iv IV CONT Not Given .Q8H NGUYEN Calcium Gluconate 1,000 mg in 50 mls @ 100 mls/hr 03/03/25 11:12 Calcium Gluc 1,000 Mg/Ns 50 Ml IVPB 03/03/25 11:41 ONCE ONE Ibuprofen 400 mg 03/01/25 15:06 03/03/25 00:13 Ibuprofen 400 Mg Tablet PO 400 mg Q6H PRN Administration Pain Rated 1-3 Labetalol HCl 10 mg 03/02/25 13:26 Labetalol Hcl Inj 100 Mg/20 Ml Vial IV PUSH Q6H PRN SBP>150 Losartan Potassium 50 mg 03/01/25 15:10 03/03/25 08:51 Losartan Potassium 50 Mg Tablet PO 50 mg DAILY NGUYEN Administration Miscellaneous Information 1 each 03/02/25 00:01 03/03/25 05:44 Tylenol/Ibuprofen--Duplicate Pain Scales XX 04/01/25 00:00 Not Given [facility] Miscellaneous Information 1 each 03/02/25 00:01 03/03/25 05:44 Clarify Nicotine Patch--Med. Rec Comments State To Start With 42 Mg And Wean Down Per Prot XX 04/01/25 00:00 Not Given [facility] Multivitamins Therapeutic 1 tablet 03/01/25 09:00 03/03/25 08:51 Multivitamins Therapeutic Tab (*Bkc) PO 1 tablet QAM NGUYEN Administration Nicotine 1 patch 03/02/25 09:00 Nicotine (*Pbkc) 21 Mg Patch TRANSDERM DAILY NGUYEN Nicotine 1 patch 03/02/25 09:00 03/03/25 08:58 Nicotine (*Pbkc) 21 Mg Patch TRANSDERM 1 patch DAILY NGUYEN Administration Ondansetron HCl 4 mg 02/28/25 16:08 03/01/25 22:21 Ondansetron Inj 4 Mg/2 Ml Vial IV PUSH 4 mg Q4H PRN Administration Nausea Pantoprazole Sodium 40 mg 02/28/25 21:15 03/03/25 08:57 Pantoprazole Sodium Iv 40 Mg Vial IV PUSH 40 mg QAM NGUYEN Administration Thiamine HCl 100 mg 02/28/25 21:20 03/03/25 08:57 Thiamine Hcl 200 Mg/2 Ml Vial IV PUSH 100 mg QAM NGUYEN Administration Umeclidinium [place] 1 puff 03/02/25 09:00 03/03/25 08:28 Umeclidinium [place] 62.5 Mcg Ellipta INHALATION 1 puff DAILY NGUYEN Administration Radiology Results: ITS Impressions Abdomen/Pelvis CT 02/28/25 14:56 IMPRESSION: 1. Likely acute on chronic interstitial pancreatitis with 4.7 x 3.4 x 2.4 similar peripherally enhancing fluid collection positioned between the tail the pancreas and the stomach which could represent a chronic pseudocyst or more recent abscess or acute peripancreatic fluid collection. 2. Extensive diverticulosis throughout the colon. 3. Prostatomegaly. 4. Extensive atherosclerotic disease with segmental occlusion of the left common iliac artery which reconstitutes at the level of the bifurcation and additional severe stenosis at the left common femoral artery. Chest X-Ray 03/01/25 08:32 Impression: No acute cardiopulmonary abnormality. Labs Labs: Laboratory Results - last 24 hr 03/02/25 03/03/25 18:36 05:55 WBC 5.0 RBC 3.07 L Hgb 10.5 L Hct 31.5 L MCV 102.6 H MCH 34.2 H MCHC 33.3 RDW 13.4 Plt Count 243 MPV 10.8 H Immature Gran % (Auto) 0.4 Neut % (Auto) 61.7 Lymph % (Auto) 20.6 [place] % (Auto) 14.7 H Eos % (Auto) 2.2 Baso % (Auto) 0.4 Lymph # (Auto) 1.02 [place] # (Auto) 0.7 H Eos # (Auto) 0.1 Baso # (Auto) 0.0 Abs Immat Gran (auto) 0.02 Absolute Neuts (auto) 3.1 Absolute Nucleated RBC 0.000 Nucleated RBC % 0.0 Sodium 126 L Potassium 3.7 Chloride 95 L Carbon Dioxide 27 Anion Gap 4 BUN 3 L Creatinine 0.64 L Estim Creat Clear Calc 92 Estimated GFR > 60 Glucose 112 H Calcium 7.6 L Total Bilirubin 0.4 AST 28 ALT 12 Alkaline Phosphatase 53 Total Protein 5.9 L Albumin 2.5 L Ur Random Sodium 77 Stl Occult Blood (IFOB) Positive H Quality VTE Prophylaxis VTE prophylaxis: mechanical ordered
[2025-03-03] MEDS: CALCIUM GLUC 1,000 MG/NS 50 ML 1,000 MG/50 ML BAG 100 MG IVPB (11:39)
[2025-03-03 12:14] LABS: Anion Gap 5 mmol/L (4-12); Blood Urea Nitrogen 3 mg/dL (9-20); Calcium 7.8 mg/dL (8.4-10.2); Carbon Dioxide 27 mmol/L (22-30); Chloride 93 mmol/L (98-107); Estimated CRCL calculation 95 ml/min; Estimated Glomerular Filt Rate > 60; Glucose 113 mg/dL (65-110); Iron 16 ug/dL (49-181); Potassium 3.7 mmol/L (3.4-5.0); Sodium 125 mmol/L (137-145)
[2025-03-03 12:24] LABS: Percent Iron Saturation 8 % (20-50)
--- NOTE | 2025-03-03 15:13 | PC.NURSE ---
Tech made RN aware of patient's BP during Q8 vitals. RN assessed patient and gave PRN medication. RN will recheck patient's BP in 30 mins.
--- NOTE | 2025-03-03 17:44 | WPDGIPROGNO ---
Progress Note: A&P Assessment and Plan (1) Acute on chronic pancreatitis: Code(s): K85.90 - Acute pancreatitis without necrosis or infection, unspecified; K86.1 - Other chronic pancreatitis Status: Acute Assessment and Plan: continues to improved he is aware that can not drink anymore ct scan showed chronic findings, pancreatic cyst- will order MRCP in few more weeks to reassess and then he can follow-up in office ok to advance diet on pancreatic enzymes supportive care (2) Malnutrition: Code(s): E46 - Unspecified protein-calorie malnutrition Status: Acute Assessment and Plan: ensure and encourage not to drink alcohol he is eating more (3) Frequent loose stools: Qualifiers: Diarrhea type: due to malabsorption Qualified Code(s): K90.9 - Intestinal malabsorption, unspecified; R19.7 - Diarrhea, unspecified Code(s): R19.7 - Diarrhea, unspecified Status: Acute Assessment and Plan: probably component of EPI on pancreatic enzymes (4) Upper abdominal pain: Code(s): R10.10 - Upper abdominal pain, unspecified Status: Acute Assessment and Plan: almost gone (5) PAD (peripheral artery disease): Code(s): I73.9 - Peripheral vascular disease, unspecified Status: Acute Assessment and Plan: he will need to follow-up with pcp (6) Alcohol dependence: Qualifiers: Substance use status: unspecified alcohol-induced disorder Qualified Code(s): F10.29 - Alcohol dependence with unspecified alcohol-induced disorder Code(s): F10.20 - Alcohol dependence, uncomplicated Status: Acute Subjective Date/time seen: 03/03/25 17:44 Interval history: minimal pain after eating but overall much better, no more nausea Review of Systems Review of Systems: All systems reviewed & are unremarkable except as noted in HPI and below Exam Const: General: comfortable and no acute distress HENMT: Face/Nose/Sinus: Normal nares present Other: poor dentition Eyes: General: appearance normal, both eyes and all related structures Neck: Neck: no JVD Resp: Auscultation: clear to auscultation bilaterally Cardio: Rate: regular rate Rhythm: regular rhythm GI: Inspection: non-distended GI Palp: Yes Soft to palpation and No Tenderness to palpation present (GI) Auscultation: normal bowel sounds Skin: General skin exam: normal color Neuro: Speech: normal speech Extrem: General: normal to inspection Psych: Mental Status: mental status grossly normal Objective Data Vital Signs Vital Signs: Vital Signs - 24 hr 03/02/25 21:30 03/02/25 22:00 03/03/25 06:00 Temperature 98.0 F 97.7 F Pulse Rate 82 72 Respiratory Rate 18 20 Blood Pressure 141/78 H 148/74 H Pulse Oximetry 98 98 100 Oxygen Delivery Room Air 03/03/25 08:29 03/03/25 09:30 03/03/25 14:00 Temperature 96.9 F L Pulse Rate 79 Respiratory Rate 18 Blood Pressure 180/83 H Pulse Oximetry 97 100 Oxygen Delivery Room Air Room Air 03/03/25 15:09 03/03/25 15:58 03/03/25 17:30 Temperature Pulse Rate 79 Respiratory Rate Blood Pressure 152/77 H 152/74 H Pulse Oximetry Oxygen Delivery Intake/Output Intake/Output: Intake & Output 02/28/25 03/01/25 03/02/25 03/03/25 23:59 23:59 23:59 23:59 Intake Total 1000 4090 3780 2432 Output Total 700 977 700 Balance 1000 3390 2803 1732 Meds/Results Medications: Active Medications Generic Name Dose Route Start Last Admin Trade Name Freq PRN Reason Stop Dose Admin Acetaminophen 500 mg 03/01/25 15:06 03/03/25 08:50 Acetaminophen 500 Mg Tablet PO 500 mg Q4H PRN Administration Mild Pain (1-3) or Fever Albuterol 2.5 mg 03/01/25 14:46 Albuterol Sulfate Neb 2.5 Mg/3 Ml Inh INHALATION Q4-6H PRN Shortness Of Breath Or Wheezing Albuterol 2 puff 03/01/25 14:46 03/03/25 08:33 Albuterol Sulfate (*Sp) Aerosol 1 Puff INHALATION 2 puff Q4H PRN Administration Shortness Of Breath Or Wheezing Lipase/Protease/Amylase 5 cap 03/01/25 12:00 03/03/25 16:32 Lipase/Amylase/Protease 12,000 Units Cap PO 5 cap TIDWM NGUYEN Administration Folic Acid 1 mg 02/28/25 21:20 03/03/25 09:00 Folic Acid 1 Mg/0.2 Ml Inj IV PUSH 1 mg QAM NGUYEN Administration Gabapentin 300 mg 03/02/25 17:00 03/03/25 16:30 Gabapentin 300 Mg Capsule PO 300 mg TID NGUYEN Administration Labetalol HCl 10 mg 03/02/25 13:26 03/03/25 15:09 Labetalol Hcl Inj 100 Mg/20 Ml Vial IV PUSH 10 mg Q6H PRN Administration SBP>150 Losartan Potassium 100 mg 03/04/25 09:00 Losartan Potassium 100 Mg Tablet PO DAILY [facility] Miscellaneous Information 1 each 03/02/25 00:01 03/03/25 05:44 Clarify Nicotine Patch--Med. Rec Comments State To Start With 42 Mg And Wean Down Per Prot XX 04/01/25 00:00 Not Given CLARIFY NGUYEN Multivitamins Therapeutic 1 tablet 03/01/25 09:00 03/03/25 08:51 Multivitamins Therapeutic Tab (*Bkc) PO 1 tablet QAM NGUYEN Administration Nicotine 1 patch 03/02/25 09:00 Nicotine (*Pbkc) 21 Mg Patch TRANSDERM DAILY NGUYEN Nicotine 1 patch 03/02/25 09:00 03/03/25 08:58 Nicotine (*Pbkc) 21 Mg Patch TRANSDERM 1 patch DAILY NGUYEN Administration Ondansetron HCl 4 mg 02/28/25 16:08 03/01/25 22:21 Ondansetron Inj 4 Mg/2 Ml Vial IV PUSH 4 mg Q4H PRN Administration Nausea Pantoprazole Sodium 40 mg 02/28/25 21:15 03/03/25 08:57 Pantoprazole Sodium Iv 40 Mg Vial IV PUSH 40 mg QAM NGUYEN Administration Thiamine HCl 100 mg 02/28/25 21:20 03/03/25 08:57 Thiamine Hcl 200 Mg/2 Ml Vial IV PUSH 100 mg QAM NGUYEN Administration Umeclidinium [place] 1 puff 03/02/25 09:00 03/03/25 08:28 Umeclidinium [place] 62.5 Mcg Ellipta INHALATION 1 puff DAILY NGUYEN Administration Radiology Results: ITS Impressions Abdomen/Pelvis CT 02/28/25 14:56 IMPRESSION: 1. Likely acute on chronic interstitial pancreatitis with 4.7 x 3.4 x 2.4 similar peripherally enhancing fluid collection positioned between the tail the pancreas and the stomach which could represent a chronic pseudocyst or more recent abscess or acute peripancreatic fluid collection. 2. Extensive diverticulosis throughout the colon. 3. Prostatomegaly. 4. Extensive atherosclerotic disease with segmental occlusion of the left common iliac artery which reconstitutes at the level of the bifurcation and additional severe stenosis at the left common femoral artery. Chest X-Ray 03/01/25 08:32 Impression: No acute cardiopulmonary abnormality. Labs Labs: Laboratory Results - last 24 hr 03/02/25 03/03/25 03/03/25 18:36 05:55 11:47 WBC 5.0 RBC 3.07 L Hgb 10.5 L Hct 31.5 L MCV 102.6 H MCH 34.2 H MCHC 33.3 RDW 13.4 Plt Count 243 MPV 10.8 H Immature Gran % (Auto) 0.4 Neut % (Auto) 61.7 Lymph % (Auto) 20.6 [place] % (Auto) 14.7 H Eos % (Auto) 2.2 Baso % (Auto) 0.4 Lymph # (Auto) 1.02 [place] # (Auto) 0.7 H Eos # (Auto) 0.1 Baso # (Auto) 0.0 Abs Immat Gran (auto) 0.02 Absolute Neuts (auto) 3.1 Absolute Nucleated RBC 0.000 Nucleated RBC % 0.0 Sodium 126 L 125 L Potassium 3.7 3.7 Chloride 95 L 93 L Carbon Dioxide 27 27 Anion Gap 4 5 BUN 3 L 3 L Creatinine 0.64 L 0.62 L Estim Creat Clear Calc 92 95 Estimated GFR > 60 > 60 Glucose 112 H 113 H Calcium 7.6 L 7.8 L Iron 16 L TIBC 189 L % Saturation 8 L Total Bilirubin 0.4 AST 28 ALT 12 Alkaline Phosphatase 53 Total Protein 5.9 L Albumin 2.5 L Ur Random Sodium 77 Stl Occult Blood (IFOB) Positive H
[2025-03-04] VITALS (10 sets, daily range): BP systolic 138–183; BP diastolic 77–97; PULSE 76–100; RESP 18; TEMP 35.9–36.3; O2SAT 97–100
[2025-03-04] MEDS: ALBUTEROL SULFATE (*SP) AEROSOL 1 PUFF 2 PUFF INHALATION (02:47)
[2025-03-04 06:41] LABS: Hematocrit 29.7 % (42.0-52.0); Hemoglobin 9.9 g/dL (14.0-18.0); Immature Granulocyte Percent A 0.3 % (0-0.5); Lymphocytes Absolute Auto 1.15 K/mm3 (0.9-3.2); Mean Corpuscular HGB Conc 33.3 g/dl (32-36); Mean Corpuscular Hemoglobin 33.7 pg (26-34); Mean Corpuscular Volume 101.0 fl (80-100); Nucleated Red Blood Cells Absolute Auto 0.000 K/mm3 (0.0-0.012); Nucleated Red Blood Cells Perc 0.0 % (0.0-0.2); Platelet Count Result 229 k/mm3 (150-375); Red Blood Count 2.94 M/mm3 (4.6-6.20); White Blood Count 5.8 K/mm3 (4.5-10.0)
--- NOTE | 2025-03-04 07:05 | P.CDI_ITS ---
CDI Query Clarification Request BMI: 16.9 Nutritional Diagnostic Statement: Please refer to the comprehensive nutrition assessment for further information. If you agree with diagnosis of Severe protein calorie malnutrition related to chronic alcohol abuse as evidenced by intakes <75% needs >1 month; severe muscle wasting and fat loss. Please specify severity if known: * Mild * Moderate * Severe * Other/Unknown <Cassandra Walls RN - Last Filed: 03/04/25 07:06> Clarified Diagnosis Clarified Diagnosis: Agree with diagnosis of severe protein calorie malnutrition <Gilmar Mcbride PA-C - Last Filed: 03/04/25 07:09>
[2025-03-04 07:30] LABS: Alanine Aminotransferase 12 U/L (6-50); Albumin Level 2.6 g/dL (3.5-5.1); Alkaline Phosphatase 62 U/L (38-126); Anion Gap 4 mmol/L (4-12); Aspartate Amino Transferase 27 U/L (17-59); Bilirubin,Total 0.3 mg/dL (0.2-1.3); Blood Urea Nitrogen 3 mg/dL (9-20); Calcium 7.5 mg/dL (8.4-10.2); Carbon Dioxide 26 mmol/L (22-30); Chloride 95 mmol/L (98-107); Estimated CRCL calculation 97 ml/min; Estimated Glomerular Filt Rate > 60; Glucose 93 mg/dL (65-110); Potassium 3.6 mmol/L (3.4-5.0); Sodium 125 mmol/L (137-145); Total Protein 6.1 g/dL (6.3-8.2)
--- NOTE | 2025-03-04 07:53 | P.PNIM_ITS ---
Progress Note: A&P Assessment and Plan (1) Acute on chronic pancreatitis: Code(s): K85.90 - Acute pancreatitis without necrosis or infection, unspecified; K86.1 - Other chronic pancreatitis Status: Acute Assessment and Plan: * Present with abdominal pain which is consistent with acute on chronic pancreatitis with pseudocyst. MRCP as outpatient to evaluate the size of pseudocyst * CT abd/pelvis: Likely acute on chronic pancreatitis, extensive diverticulosis, prostatomegaly, Extensive atherosclerotic disease with segmental occlusion of the left common iliac artery which reconstitutes at the level of the bi furcation and additional severe stenosis at the left common femoral artery * Liver enzymes was normal limit * Discontinue IV fluid, encourage oral intake, alcohol cessation, and in folate * Zofran prn for nausea * consultation to dietitian * GI consulted, appreciate rec * continue pancreatic enzyme replacement with meals including after discharge * Alcohol cessation counseling * Continue Protonix 40 mg p.o. * Fibrosis panel pending (2) HTN (hypertension): Code(s): I10 - Essential (primary) hypertension Status: Acute Assessment and Plan: * Continue losartan * BP goal 130/80 * ok to use prn labetalol (3) Diverticulosis: Code(s): K57.90 - Diverticulosis of intestine, part unspecified, without perforation or abscess without bleeding Status: Acute Assessment and Plan: * CT Abd/pelvis: Extensive diverticulosis throughout the colon. * Monitor vital signs, I&Os, track stool output, watch for bloody stools, neuro status and patient is a fall risk * Monitor serum electrolytes and CBC * PRN pain control (4) Poor circulation: Code(s): R09.89 - Other specified symptoms and signs involving the circulatory and respiratory systems Status: Acute Assessment and Plan: * CT Abd/pelvis: Extensive atherosclerotic disease with segmental occlusion of the left common iliac artery which reconstitutes at the level of the bifurcation and additional severe stenosis at the left common femoral artery. * Distal pulses intact * Follows with PCP * No acute intervention needed at this time (5) Hypomagnesemia: Code(s): E83.42 - Hypomagnesemia Status: Acute Assessment and Plan: * 10/10: Mg 1.2 * Give 4gm IV magnesium sulfate * Repeat daily labs, continue to monitor * Replace as needed (6) Abnormal weight loss: Code(s): R63.4 - Abnormal weight loss Status: Acute Assessment and Plan: * Could be secondary to excessive ETOH intake/chronic pancreatitis * GI/dietary consulted * Encourage to intake more formed foods along w/ pancreatic enzymes (7) Hyponatremia: Code(s): E87.1 - Hypo-osmolality and hyponatremia Status: Acute Assessment and Plan: Likely 2/2 poor oral intake. Encourage oral intake Dc IVF BMP at noon Plan if he tolerates general diet, will discharge him home. Pain control with gabapentin Discontinue NSAID Subjective Date/time seen: 03/04/25 07:53 Interval history: minimal pain after eating but overall much better, no more nausea Review of Systems Review of Systems: All systems reviewed & are unremarkable except as noted in HPI and below Exam Narrative: APPEARANCE: No acute distress, abdominal discomfort. Poor dentition. EYES: EOMI HEENT: Normocephalic, atraumatic, OMM RESPIRATORY: No respiratory distress Clear to auscultation bilaterally with no rhonchi wheezing or rales. CARDIOVASCULAR: RRR, S1 and S2 without murmurs rubs or gallops. ABDOMINAL: Soft, nontender, nondistended, no rebound or guarding MSK: no issues NEURO: Awake and alert. Following commands, speech normal, no focal deficits SKIN:: Warm, dry. No rashes lesions or abrasions PSYCHIATRIC: Congrent mood Objective Data Vital Signs Vital Signs: Vital Signs - 24 hr 03/03/25 08:29 03/03/25 09:30 03/03/25 14:00 Temperature 96.9 F L Pulse Rate 79 Respiratory Rate 18 Blood Pressure 180/83 H Pulse Oximetry 97 100 Oxygen Delivery Room Air Room Air 03/03/25 15:09 03/03/25 15:58 03/03/25 17:30 Temperature Pulse Rate 79 Respiratory Rate Blood Pressure 152/77 H 152/74 H Pulse Oximetry Oxygen Delivery 03/03/25 22:00 03/04/25 06:00 Temperature 97.5 F L 97.4 F L Pulse Rate 86 76 Respiratory Rate 18 18 Blood Pressure 148/84 H 151/82 H Pulse Oximetry 100 99 Oxygen Delivery Intake/Output Intake/Output: Intake & Output 03/01/25 03/02/25 03/03/25 03/04/25 23:59 23:59 23:59 23:59 Intake Total 4090 3780 2432 800 Output Total 700 244 734 4144 Balance 3390 2803 1732 -300 Meds/Results Medications: Active Medications Generic Name Dose Route Start Last Admin Trade Name Freq PRN Reason Stop Dose Admin Acetaminophen 500 mg 03/01/25 15:06 03/03/25 21:07 Acetaminophen 500 Mg Tablet PO 500 mg Q4H PRN Administration Mild Pain (1-3) or Fever Albuterol 2.5 mg 03/01/25 14:46 Albuterol Sulfate Neb 2.5 Mg/3 Ml Inh INHALATION Q4-6H PRN Shortness Of Breath Or Wheezing Albuterol 2 puff 03/01/25 14:46 03/04/25 02:47 Albuterol Sulfate (*Sp) Aerosol 1 Puff INHALATION 2 puff Q4H PRN Administration Shortness Of Breath Or Wheezing Lipase/Protease/Amylase 5 cap 03/01/25 12:00 03/03/25 16:32 Lipase/Amylase/Protease 12,000 Units Cap PO 5 cap TIDWM NGUYEN Administration Folic Acid 1 mg 02/28/25 21:20 03/03/25 09:00 Folic Acid 1 Mg/0.2 Ml Inj IV PUSH 1 mg QAM NGUYEN Administration Gabapentin 300 mg 03/02/25 17:00 03/03/25 16:30 Gabapentin 300 Mg Capsule PO 300 mg TID NGUYEN Administration Labetalol HCl 10 mg 03/02/25 13:26 03/03/25 15:09 Labetalol Hcl Inj 100 Mg/20 Ml Vial IV PUSH 10 mg Q6H PRN Administration SBP>150 Losartan Potassium 100 mg 03/04/25 09:00 Losartan Potassium 100 Mg Tablet PO DAILY [facility] Miscellaneous Information 1 each 03/02/25 00:01 03/03/25 05:44 Clarify Nicotine Patch--Med. Rec Comments State To Start With 42 Mg And Wean Down Per Prot XX 04/01/25 00:00 Not Given CLARIFY NGUYEN Multivitamins Therapeutic 1 tablet 03/01/25 09:00 03/03/25 08:51 Multivitamins Therapeutic Tab (*Bkc) PO 1 tablet QAM NGUYEN Administration Nicotine 1 patch 03/02/25 09:00 Nicotine (*Pbkc) 21 Mg Patch TRANSDERM DAILY NGUYEN Nicotine 1 patch 03/02/25 09:00 03/03/25 08:58 Nicotine (*Pbkc) 21 Mg Patch TRANSDERM 1 patch DAILY NGUYEN Administration Ondansetron HCl 4 mg 02/28/25 16:08 03/01/25 22:21 Ondansetron Inj 4 Mg/2 Ml Vial IV PUSH 4 mg Q4H PRN Administration Nausea Pantoprazole Sodium 40 mg 02/28/25 21:15 03/03/25 08:57 Pantoprazole Sodium Iv 40 Mg Vial IV PUSH 40 mg QAM NGUYEN Administration Thiamine HCl 100 mg 02/28/25 21:20 03/03/25 08:57 Thiamine Hcl 200 Mg/2 Ml Vial IV PUSH 100 mg QAM NGUYEN Administration Umeclidinium [place] 1 puff 03/02/25 09:00 03/03/25 08:28 Umeclidinium [place] 62.5 Mcg Ellipta INHALATION 1 puff DAILY NGUYEN Administration Radiology Results: ITS Impressions Abdomen/Pelvis CT 02/28/25 14:56 IMPRESSION: 1. Likely acute on chronic interstitial pancreatitis with 4.7 x 3.4 x 2.4 similar peripherally enhancing fluid collection positioned between the tail the pancreas and the stomach which could represent a chronic pseudocyst or more recent abscess or acute peripancreatic fluid collection. 2. Extensive diverticulosis throughout the colon. 3. Prostatomegaly. 4. Extensive atherosclerotic disease with segmental occlusion of the left common iliac artery which reconstitutes at the level of the bifurcation and additional severe stenosis at the left common femoral artery. Chest X-Ray 03/01/25 08:32 Impression: No acute cardiopulmonary abnormality. Labs Labs: Laboratory Results - last 24 hr 03/03/25 03/04/25 11:47 06:08 WBC 5.8 RBC 2.94 L Hgb 9.9 L Hct 29.7 L MCV 101.0 H MCH 33.7 MCHC 33.3 RDW 13.3 Plt Count 229 MPV 10.1 Immature Gran % (Auto) 0.3 Neut % (Auto) 61.0 Lymph % (Auto) 19.9 [place] % (Auto) 16.4 H Eos % (Auto) 2.1 Baso % (Auto) 0.3 Lymph # (Auto) 1.15 [place] # (Auto) 1.0 H Eos # (Auto) 0.1 Baso # (Auto) 0.0 Abs Immat Gran (auto) 0.02 Absolute Neuts (auto) 3.5 Absolute Nucleated RBC 0.000 Nucleated RBC % 0.0 Sodium 125 L 125 L Potassium 3.7 3.6 Chloride 93 L 95 L Carbon Dioxide 27 26 Anion Gap 5 4 BUN 3 L 3 L Creatinine 0.62 L 0.61 L Estim Creat Clear Calc 95 97 Estimated GFR > 60 > 60 Glucose 113 H 93 Calcium 7.8 L 7.5 L Iron 16 L TIBC 189 L % Saturation 8 L Total Bilirubin 0.3 AST 27 ALT 12 Alkaline Phosphatase 62 Total Protein 6.1 L Albumin 2.6 L Quality VTE Prophylaxis VTE prophylaxis: mechanical ordered
[2025-03-04] MEDS: UMECLIDINIUM BROMIDE 62.5 MCG ELLIPTA 1 PUFF INHALATION (08:21)
[2025-03-04] MEDS: LIPASE/AMYLASE/PROTEASE 12,000 UNITS CAP 5 CAP PO ×3 (09:01→16:19)
[2025-03-04] MEDS: GABAPENTIN 300 MG CAPSULE PO ×3 (09:02→16:19)
[2025-03-04] MEDS: MULTIVITAMINS THERAPEUTIC TAB (*BKC) 1 TABLET PO (09:02)
[2025-03-04] MEDS: THIAMINE HCL 200 MG/2 ML VIAL 100 MG IV PUSH (09:02)
[2025-03-04] MEDS: LOSARTAN POTASSIUM 100 MG TABLET PO (09:03)
[2025-03-04] MEDS: PANTOPRAZOLE SODIUM IV 40 MG VIAL IV PUSH (09:03)
[2025-03-04] MEDS: NICOTINE (*PBKC) 21 MG PATCH 1 PATCH TRANSDERM (09:03)
[2025-03-04] MEDS: FOLIC ACID 1 MG/0.2 ML INJ IV PUSH (09:04)
--- NOTE | 2025-03-04 10:06 | PCNFU ---
Nutrition Follow-Up Complete: Severe protein calorie malnutrition related to chronic alcohol abuse as evidenced by intakes <75% needs >1 month; severe muscle wasting and fat loss Goal:Diet advancement per MD Pt meeting goal, new goal for adequate intake 75% or greater all meals Pt current nutrition is Regular. Nutrition recommendation: Add Ensure BID for an additional 350kcals, 20g protein per shake Last recorded weight is 63.05 kg. Bowel Motility: +BM 03/02 Labs Reviewed: Hgb:9.9, HCT:29.7, Alb:2.6, NA:125, BUN:3, Cr:0.6 Meds Noted: protonix, thiamin, MVI Skin: WNL Additional Notes: Pt diet advanced to regular, intake good at 75-100%. Pt tolerating. Recommend to add Ensure shakes BID for supplement. Encourage intake. Monitoring diet orders, weights, labs, output, plan of care Follow up in 5 days
--- NOTE | 2025-03-04 15:10 | P.DS_ITS ---
DS: Admitting Diagnosis Discharge Date 03/04/2025 Admitting Diagnosis Acute on chronic pancreatitis, hyponatremia DS: Discharge Diagnosis Discharge Diagnosis (1) Acute on chronic pancreatitis: Code(s): K85.90 - Acute pancreatitis without necrosis or infection, unspecified; K86.1 - Other chronic pancreatitis Status: Acute Assessment and Plan: * Present with abdominal pain which is consistent with acute on chronic pancreatitis with pseudocyst. MRCP as outpatient to evaluate the size of pseudocyst * CT abd/pelvis: Likely acute on chronic pancreatitis, extensive diverticulosis, prostatomegaly, Extensive atherosclerotic disease with segmental occlusion of the left common iliac artery which reconstitutes at the level of the bifurcation and additional severe stenosis at the left common femoral artery * Liver enzymes was normal limit * Discontinue IV fluid, encourage oral intake, alcohol cessation, and in folate * Zofran prn for nausea * consultation to dietitian * GI consulted, appreciate rec * continue pancreatic enzyme replacement with meals including after discharge * Alcohol cessation counseling * Continue Protonix 40 mg p.o. * Fibrosis panel pending (2) HTN (hypertension): Code(s): I10 - Essential (primary) hypertension Status: Acute Assessment and Plan: * Continue losartan * BP goal 130/80 * ok to use prn labetalol (3) Diverticulosis: Code(s): K57.90 - Diverticulosis of intestine, part unspecified, without perforation or abscess without bleeding Status: Acute Assessment and Plan: * CT Abd/pelvis: Extensive diverticulosis throughout the colon. * Monitor vital signs, I&Os, track stool output, watch for bloody stools, neuro status and patient is a fall risk * Monitor serum electrolytes and CBC * PRN pain control (4) Poor circulation: Code(s): R09.89 - Other specified symptoms and signs involving the circulatory and respiratory systems Status: Acute Assessment and Plan: * CT Abd/pelvis: Extensive atherosclerotic disease with segmental occlusion of the left common iliac artery which reconstitutes at the level of the bifurcation and additional severe stenosis at the left common femoral artery. * Distal pulses intact * Follows with PCP * No acute intervention needed at this time (5) Hypomagnesemia: Code(s): E83.42 - Hypomagnesemia Status: Acute Assessment and Plan: * 1010: Mg 1.2 * Give 4gm IV magnesium sulfate * Repeat daily labs, continue to monitor * Replace as needed (6) Abnormal weight loss: Code(s): R63.4 - Abnormal weight loss Status: Acute Assessment and Plan: * Could be secondary to excessive ETOH intake/chronic pancreatitis * GI/dietary consulted * Encourage to intake more formed foods along w/ pancreatic enzymes (7) Hyponatremia: Code(s): E87.1 - Hypo-osmolality and hyponatremia Status: Acute Assessment and Plan: Likely 2/2 poor oral intake. Encourage oral intake Dc IVF BMP at noon Plan if he tolerates general diet, will discharge him home. Pain control with gabapentin Discontinue NSAID DS: Summary Hospital Course Reason for hospitalization: Abdominal pain Hospital Course: per HPI: Willem Woodall is a 59-year-old male with a past medical history of alcohol dependence, hypertension, hepatic steatosis, asthma, migraines, and mood disorder who presents to the hospital with abdominal pain. Patient reports a longstanding history of alcohol abuse and typically drinks about half a pint of Radha but reports that he has not had any drinks the past 3 days. He states that he has been having nausea and upper abdominal discomfort for the past several months, worse over the past few days. Also endorsing associated nausea. Reports that he does not eat very much as he gets full quickly and has lost over 40 lb over the past few months. Denies any chest pain, shortness of breath, dysphagia, reflux, regurgitation, or urinary/bowel changes. Also denies any history of constipation or blood in the stool. Endorses cigarette smoking and marijuana use. ED Workup: 98.5? F, 81 pulse rate, 15 respiratory rate, 98% on room air, 169/87 WBC 8.5, HGB 12.9, HCT 39.6, PLT 299, sodium 133, potassium 3.8, carbon dioxide 23, BUN 7, creatinine 0.72, GFR> 60, LFTs WNL, lipase 474 UA: Not indicative of infection Abdomen/pelvis CT: likely acute on chronic pancreatitis, extensive diverticulosis, prostatomegaly, Extensive atherosclerotic disease with segmental occlusion of the left common iliac artery which reconstitutes at the level of the bifurcation and additional severe stenosis at the left common femoral artery Hospital course: Status at Discharge Functional status at discharge: uses cane/walker Overall status at discharge: patient is back to baseline Time Spent with Patient Time attestation: Total time spent providing and/or coordinating discharge services: Exam Narrative: APPEARANCE: No acute distress, abdominal discomfort. Poor dentition. EYES: EOMI HEENT: Normocephalic, atraumatic, OMM RESPIRATORY: No respiratory distress Clear to auscultation bilaterally with no rhonchi wheezing or rales. CARDIOVASCULAR: RRR, S1 and S2 without murmurs rubs or gallops. ABDOMINAL: Soft, nontender, nondistended, no rebound or guarding MSK: no issues NEURO: Awake and alert. Following commands, speech normal, no focal deficits SKIN:: Warm, dry. No rashes lesions or abrasions PSYCHIATRIC: Congrent mood DS: Data Data Completed and Pending Labs on day of discharge: Labs from last 24 hours 03/04/25 06:08 WBC 5.8 RBC 2.94 L Hgb 9.9 L Hct 29.7 L MCV 101.0 H MCH 33.7 MCHC 33.3 RDW 13.3 Plt Count 229 MPV 10.1 Immature Gran % (Auto) 0.3 Neut % (Auto) 61.0 Lymph % (Auto) 19.9 [place] % (Auto) 16.4 H Eos % (Auto) 2.1 Baso % (Auto) 0.3 Lymph # (Auto) 1.15 [place] # (Auto) 1.0 H Eos # (Auto) 0.1 Baso # (Auto) 0.0 Abs Immat Gran (auto) 0.02 Absolute Neuts (auto) 3.5 Absolute Nucleated RBC 0.000 Nucleated RBC % 0.0 Sodium 125 L Potassium 3.6 Chloride 95 L Carbon Dioxide 26 Anion Gap 4 BUN 3 L Creatinine 0.61 L Estim Creat Clear Calc 97 Estimated GFR > 60 Glucose 93 Calcium 7.5 L Total Bilirubin 0.3 AST 27 ALT 12 Alkaline Phosphatase 62 Total Protein 6.1 L Albumin 2.6 L Discharge Plan Discharge Attending physician on discharge: Homer Christianson Oca Consulting providers: Gilmar Mcbride; Doug Luciano; Jenifer Riggins Discharging Clinician: Gilmar Mcbride Anticipated Discharge Date/Time: 03/04/25 15:07 Patient Disposition: Home Activity: as tolerated Diet: regular Discharge Instructions: Discharge disposition: Home Take medications as prescribed You will be given blood work orders to be filled out in 3 days to check your sodium levels. Obtain this at a location of your choosing. Monitor blood pressures Take caution while standing, rising, or moving Change positions slowly taking a break between each position change If you standing feel dizzy sit back down and take a break Encouraged to continue with yearly vaccinations Return to the emergency department if you develop sudden shortness of breath, chest pain, nausea, vomiting, upset stomach or intractable diarrhea Return to the emergency department if you develop fever greater than 101.5 Follow-up with the primary care physician within 1-2 weeks Thank you for [facility] for your healthcare needs Patient Instructions: Antibiotic Form Patient Language: [place]ian Stand Alone Forms: General Discharge Information Follow-up/Referrals: Brian,Raghu Sanches MD [Primary Care Provider, Unknown] Discharge Medications: Continued albuterol sulfate 2.5 mg /3 mL (0.083 %) solution for nebulization 2.5 mg inhalation Q4-6H PRN (Reason: shortness of breath or wheezing) multivitamin Tablet 1 tablet PO DAILY Tudorza Pressair 400 mcg/actuation aerosol powdr breath activated 1 inh inhalation Q12H Qty: 1 12RF albuterol sulfate [Ventolin HFA] 90 mcg/actuation HFA aerosol inhaler 2 inh inhalation Q4H PRN (Reason: shortness of breath or wheezing) Qty: 8.5 12RF nicotine 21-14-7 mg/24 hr patch, TD daily, sequential 1 patch transdermal DAILY Qty: 56 2RF nicotine 21 mg/24 hr patch 24 hour 1 patch transdermal DAILY Qty: 28 0RF Rx Instructions: Start with 42 mg daily for 4 weeks then wean per protocol. losartan 50 mg tablet 50 mg PO DAILY oxycodone-acetaminophen 7.5-325 mg tablet 1 tablet PO BID PRN (Reason: pain) Other Ambulatory Orders: Basic Metabolic Panel (Routine) Timeframe: 3 Days Location: Determined by Patient Ordered By: Gilmar Mcbride Date of admission: 03/01/25 10:15 Primary Care Provider: Kaela,Raghu Sanches Admitting Provider: Hoemr Christianson Oca Attending physician on admission: Homer Christianson Oca Condition: Stable Quality VTE Prophylaxis VTE prophylaxis: mechanical ordered
--- NOTE | 2025-03-04 15:38 | P.PNIM_ITS ---
Progress Note: A&P Assessment and Plan (1) Acute on chronic pancreatitis: Code(s): K85.90 - Acute pancreatitis without necrosis or infection, unspecified; K86.1 - Other chronic pancreatitis Status: Acute Assessment and Plan: * Present with abdominal pain which is consistent with acute on chronic pancreatitis with pseudocyst. MRCP as outpatient to evaluate the size of pseudocyst * CT abd/pelvis: Likely acute on chronic pancreatitis, extensive diverticulosis, prostatomegaly, Extensive atherosclerotic disease with segmental occlusion of the left common iliac artery which reconstitutes at the level of the bi furcation and additional severe stenosis at the left common femoral artery * Liver enzymes was normal limit * Discontinue IV fluid, encourage oral intake, alcohol cessation, and in folate * Zofran prn for nausea * consultation to dietitian * GI consulted, appreciate rec * continue pancreatic enzyme replacement with meals including after discharge * Alcohol cessation counseling * Continue Protonix 40 mg p.o. * Fibrosis panel pending (2) HTN (hypertension): Code(s): I10 - Essential (primary) hypertension Status: Acute Assessment and Plan: * Continue losartan * BP goal 130/80 * ok to use prn labetalol (3) Diverticulosis: Code(s): K57.90 - Diverticulosis of intestine, part unspecified, without perforation or abscess without bleeding Status: Acute Assessment and Plan: * CT Abd/pelvis: Extensive diverticulosis throughout the colon. * Monitor vital signs, I&Os, track stool output, watch for bloody stools, neuro status and patient is a fall risk * Monitor serum electrolytes and CBC * PRN pain control (4) Poor circulation: Code(s): R09.89 - Other specified symptoms and signs involving the circulatory and respiratory systems Status: Acute Assessment and Plan: * CT Abd/pelvis: Extensive atherosclerotic disease with segmental occlusion of the left common iliac artery which reconstitutes at the level of the bifurcation and additional severe stenosis at the left common femoral artery. * Distal pulses intact * Follows with PCP * No acute intervention needed at this time (5) Hypomagnesemia: Code(s): E83.42 - Hypomagnesemia Status: Acute Assessment and Plan: * 10/10: Mg 1.2 * Give 4gm IV magnesium sulfate * Repeat daily labs, continue to monitor * Replace as needed (6) Abnormal weight loss: Code(s): R63.4 - Abnormal weight loss Status: Acute Assessment and Plan: * Could be secondary to excessive ETOH intake/chronic pancreatitis * GI/dietary consulted * Encourage to intake more formed foods along w/ pancreatic enzymes (7) Hyponatremia: Code(s): E87.1 - Hypo-osmolality and hyponatremia Status: Acute Assessment and Plan: Likely 2/2 poor oral intake. Encourage oral intake Dc IVF BMP at noon Nephrology consult Plan if he tolerates general diet, will discharge him home. Pain control with gabapentin Discontinue NSAID Subjective Date/time seen: 03/04/25 15:38 Interval history: Abdominal pain keeps improving today. Denies any nausea/vomiting. Tolerating full diet. Sodium remains low at 125. Nephrology consulted regarding any possible further recommendations. Blood pressure remains high at 183/97. Will give 1 time dose of hydralazine. Review of Systems Review of Systems: All systems reviewed & are unremarkable except as noted in HPI and below Exam Narrative: APPEARANCE: No acute distress, abdominal discomfort. Poor dentition. EYES: EOMI HEENT: Normocephalic, atraumatic, OMM RESPIRATORY: No respiratory distress Clear to auscultation bilaterally with no rhonchi wheezing or rales. CARDIOVASCULAR: RRR, S1 and S2 without murmurs rubs or gallops. ABDOMINAL: Soft, nontender, nondistended, no rebound or guarding MSK: no issues NEURO: Awake and alert. Following commands, speech normal, no focal deficits SKIN:: Warm, dry. No rashes lesions or abrasions PSYCHIATRIC: Congrent mood Objective Data Vital Signs Vital Signs: Vital Signs - 24 hr 03/03/25 15:58 03/03/25 17:30 03/03/25 22:00 Temperature 97.5 F L Pulse Rate 86 Respiratory Rate 18 Blood Pressure 152/77 H 152/74 H 148/84 H Pulse Oximetry 100 Oxygen Delivery 03/04/25 06:00 03/04/25 08:00 03/04/25 08:20 Temperature 97.4 F L Pulse Rate 76 82 Respiratory Rate 18 Blood Pressure 151/82 H Pulse Oximetry 99 Oxygen Delivery Room Air 03/04/25 08:27 03/04/25 09:00 03/04/25 10:59 Temperature Pulse Rate 79 Respiratory Rate Blood Pressure 165/88 H 148/84 H Pulse Oximetry 97 Oxygen Delivery Room Air Intake/Output Intake/Output: Intake & Output 03/01/25 03/02/25 03/03/25 03/04/25 23:59 23:59 23:59 23:59 Intake Total 4090 3780 2432 1600 Output Total 700 979 884 4230 Balance 3390 2803 1732 -200 Meds/Results Medications: Active Medications Generic Name Dose Route Start Last Admin Trade Name Freq PRN Reason Stop Dose Admin Acetaminophen 500 mg 03/01/25 15:06 03/03/25 21:07 Acetaminophen 500 Mg Tablet PO 500 mg Q4H PRN Administration Mild Pain (1-3) or Fever Albuterol 2.5 mg 03/01/25 14:46 Albuterol Sulfate Neb 2.5 Mg/3 Ml Inh INHALATION Q4-6H PRN Shortness Of Breath Or Wheezing Albuterol 2 puff 03/01/25 14:46 03/04/25 02:47 Albuterol Sulfate (*Sp) Aerosol 1 Puff INHALATION 2 puff Q4H PRN Administration Shortness Of Breath Or Wheezing Lipase/Protease/Amylase 5 cap 03/01/25 12:00 03/04/25 13:11 Lipase/Amylase/Protease 12,000 Units Cap PO 5 cap TIDWM NGUEYN Administration Folic Acid 1 mg 02/28/25 21:20 03/04/25 09:04 Folic Acid 1 Mg/0.2 Ml Inj IV PUSH 1 mg QAM NGUYEN Administration Gabapentin 300 mg 03/02/25 17:00 03/04/25 13:11 Gabapentin 300 Mg Capsule PO 300 mg TID NGUYEN Administration Hydralazine HCl 10 mg 03/04/25 15:36 Hydralazine Hcl 20 Mg/Ml Vial IV PUSH 03/04/25 15:37 ONCE ONE Labetalol HCl 10 mg 03/02/25 13:26 03/03/25 15:09 Labetalol Hcl Inj 100 Mg/20 Ml Vial IV PUSH 10 mg Q6H PRN Administration SBP>150 Losartan Potassium 100 mg 03/04/25 09:00 03/04/25 09:03 Losartan Potassium 100 Mg Tablet PO 100 mg DAILY NGUYEN Administration Miscellaneous Information 1 each 03/02/25 00:01 03/03/25 05:44 Clarify Nicotine Patch--Med. Rec Comments State To Start With 42 Mg And Wean Down Per Prot XX 04/01/25 00:00 Not Given CLARIFY NGUYEN Multivitamins Therapeutic 1 tablet 03/01/25 09:00 03/04/25 09:02 Multivitamins Therapeutic Tab (*Bkc) PO 1 tablet QAM NGUYEN Administration Nicotine 1 patch 03/02/25 09:00 Nicotine (*Pbkc) 21 Mg Patch TRANSDERM DAILY NGUYEN Nicotine 1 patch 03/02/25 09:00 03/04/25 09:03 Nicotine (*Pbkc) 21 Mg Patch TRANSDERM 1 patch DAILY NGUYEN Administration Ondansetron HCl 4 mg 02/28/25 16:08 03/01/25 22:21 Ondansetron Inj 4 Mg/2 Ml Vial IV PUSH 4 mg Q4H PRN Administration Nausea Pantoprazole Sodium 40 mg 02/28/25 21:15 03/04/25 09:03 Pantoprazole Sodium Iv 40 Mg Vial IV PUSH 40 mg QAM NGUYEN Administration Sodium Chloride 500 mg 03/04/25 17:00 Sodium Chloride 500 Mg Tablet PO BID NGUYEN Thiamine HCl 100 mg 02/28/25 21:20 03/04/25 09:02 Thiamine Hcl 200 Mg/2 Ml Vial IV PUSH 100 mg QAM NGUYEN Administration Umeclidinium [place] 1 puff 03/02/25 09:00 03/04/25 08:21 Umeclidinium [place] 62.5 Mcg Ellipta INHALATION 1 puff DAILY NGUYEN Administration Radiology Results: ITS Impressions Abdomen/Pelvis CT 02/28/25 14:56 IMPRESSION: 1. Likely acute on chronic interstitial pancreatitis with 4.7 x 3.4 x 2.4 similar peripherally enhancing fluid collection positioned between the tail the pancreas and the stomach which could represent a chronic pseudocyst or more recent abscess or acute peripancreatic fluid collection. 2. Extensive diverticulosis throughout the colon. 3. Prostatomegaly. 4. Extensive atherosclerotic disease with segmental occlusion of the left common iliac artery which reconstitutes at the level of the bifurcation and additional severe stenosis at the left common femoral artery. Chest X-Ray 03/01/25 08:32 Impression: No acute cardiopulmonary abnormality. Labs Labs: Laboratory Results - last 24 hr 03/04/25 06:08 WBC 5.8 RBC 2.94 L Hgb 9.9 L Hct 29.7 L MCV 101.0 H MCH 33.7 MCHC 33.3 RDW 13.3 Plt Count 229 MPV 10.1 Immature Gran % (Auto) 0.3 Neut % (Auto) 61.0 Lymph % (Auto) 19.9 [place] % (Auto) 16.4 H Eos % (Auto) 2.1 Baso % (Auto) 0.3 Lymph # (Auto) 1.15 [place] # (Auto) 1.0 H Eos # (Auto) 0.1 Baso # (Auto) 0.0 Abs Immat Gran (auto) 0.02 Absolute Neuts (auto) 3.5 Absolute Nucleated RBC 0.000 Nucleated RBC % 0.0 Sodium 125 L Potassium 3.6 Chloride 95 L Carbon Dioxide 26 Anion Gap 4 BUN 3 L Creatinine 0.61 L Estim Creat Clear Calc 97 Estimated GFR > 60 Glucose 93 Calcium 7.5 L Total Bilirubin 0.3 AST 27 ALT 12 Alkaline Phosphatase 62 Total Protein 6.1 L Albumin 2.6 L Quality VTE Prophylaxis VTE prophylaxis: mechanical ordered
[2025-03-04] MEDS: SODIUM CHLORIDE 500 MG TABLET PO (16:18)
[2025-03-04] MEDS: ACETAMINOPHEN 500 MG TABLET PO (22:12)
[2025-03-05 05:39] VITALS: BP 145/87; PULSE 91; RESP 16; TEMP 36.3; O2SAT 96
[2025-03-05 06:08] LABS: Total Protein Urine Random 12 mg/dL
[2025-03-05 06:36] LABS: Hematocrit 33.5 % (42.0-52.0); Hemoglobin 11.1 g/dL (14.0-18.0); Immature Granulocyte Percent A 0.4 % (0-0.5); Lymphocytes Absolute Auto 1.50 K/mm3 (0.9-3.2); Mean Corpuscular HGB Conc 33.1 g/dl (32-36); Mean Corpuscular Hemoglobin 34.2 pg (26-34); Mean Corpuscular Volume 103.1 fl (80-100); Nucleated Red Blood Cells Absolute Auto 0.000 K/mm3 (0.0-0.012); Nucleated Red Blood Cells Perc 0.0 % (0.0-0.2); Platelet Count Result 307 k/mm3 (150-375); Red Blood Count 3.25 M/mm3 (4.6-6.20); White Blood Count 7.4 K/mm3 (4.5-10.0)
[2025-03-05 06:47] LABS: Urea Random Urine < 67 MG/DL
[2025-03-05 06:50] LABS: Ur Ttl Prot Creatinine Ratio 1.11 mg/mg (0-0.20)
[2025-03-05 07:02] LABS: Alanine Aminotransferase 13 U/L (6-50); Albumin Level 3.3 g/dL (3.5-5.1); Alkaline Phosphatase 78 U/L (38-126); Anion Gap 7 mmol/L (4-12); Aspartate Amino Transferase 55 U/L (17-59); Bilirubin,Total 0.5 mg/dL (0.2-1.3); Blood Urea Nitrogen 3 mg/dL (9-20); Calcium 8.1 mg/dL (8.4-10.2); Carbon Dioxide 28 mmol/L (22-30); Chloride 93 mmol/L (98-107); Estimated CRCL calculation 94 ml/min; Estimated Glomerular Filt Rate > 60; Glucose 85 mg/dL (65-110); Potassium 4.0 mmol/L (3.4-5.0); Sodium 128 mmol/L (137-145); Total Protein 7.1 g/dL (6.3-8.2)
[2025-03-05] MEDS: UMECLIDINIUM BROMIDE 62.5 MCG ELLIPTA 1 PUFF INHALATION (09:00)
[2025-03-05 09:14] VITALS: O2SAT 99
[2025-03-05] MEDS: THIAMINE HCL 200 MG/2 ML VIAL 100 MG IV PUSH (09:35)
[2025-03-05] MEDS: NICOTINE (*PBKC) 21 MG PATCH 1 PATCH TRANSDERM (09:35)
[2025-03-05] MEDS: PANTOPRAZOLE SODIUM IV 40 MG VIAL IV PUSH (09:35)
[2025-03-05] MEDS: LIPASE/AMYLASE/PROTEASE 12,000 UNITS CAP 5 CAP PO (09:36)
[2025-03-05] MEDS: GABAPENTIN 300 MG CAPSULE PO (09:37)
[2025-03-05] MEDS: LOSARTAN POTASSIUM 100 MG TABLET PO (09:37)
[2025-03-05] MEDS: MULTIVITAMINS THERAPEUTIC TAB (*BKC) 1 TABLET PO (09:37)
[2025-03-05] MEDS: SODIUM CHLORIDE 500 MG TABLET PO (09:37)
[2025-03-05] MEDS: FOLIC ACID 1 MG/0.2 ML INJ IV PUSH (09:45)
--- NOTE | 2025-03-05 10:18 | P.DS_ITS ---
DS: Admitting Diagnosis Discharge Date 03/05/2025 Admitting Diagnosis Acute on chronic pancreatitis DS: Discharge Diagnosis Discharge Diagnosis (1) Acute on chronic pancreatitis: Code(s): K85.90 - Acute pancreatitis without necrosis or infection, unspecified; K86.1 - Other chronic pancreatitis Status: Acute Assessment and Plan: * Present with abdominal pain which is consistent with acute on chronic pancreatitis with pseudocyst. MRCP as outpatient to evaluate the size of pseudocyst * CT abd/pelvis: Likely acute on chronic pancreatitis, extensive diverticulosis, prostatomegaly, Extensive atherosclerotic disease with segmental occlusion of the left common iliac artery which reconstitutes at the level of the bifurcation and additional severe stenosis at the left common femoral artery * Liver enzymes was normal limit * Discontinue IV fluid, encourage oral intake, alcohol cessation, and in folate * Zofran prn for nausea * consultation to dietitian * GI consulted, appreciate rec * continue pancreatic enzyme replacement with meals including after discharge * Alcohol cessation counseling * Continue Protonix 40 mg p.o. * Fibrosis panel pending (2) HTN (hypertension): Code(s): I10 - Essential (primary) hypertension Status: Acute Assessment and Plan: * Continue losartan * BP goal 130/80 * ok to use prn labetalol (3) Diverticulosis: Code(s): K57.90 - Diverticulosis of intestine, part unspecified, without perforation or abscess without bleeding Status: Acute Assessment and Plan: * CT Abd/pelvis: Extensive diverticulosis throughout the colon. * Monitor vital signs, I&Os, track stool output, watch for bloody stools, neuro status and patient is a fall risk * Monitor serum electrolytes and CBC * PRN pain control (4) Poor circulation: Code(s): R09.89 - Other specified symptoms and signs involving the circulatory and respiratory systems Status: Acute Assessment and Plan: * CT Abd/pelvis: Extensive atherosclerotic disease with segmental occlusion of the left common iliac artery which reconstitutes at the level of the bifurcation and additional severe stenosis at the left common femoral artery. * Distal pulses intact * Follows with PCP * No acute intervention needed at this time (5) Hypomagnesemia: Code(s): E83.42 - Hypomagnesemia Status: Acute Assessment and Plan: * 10/10: Mg 1.2 * Give 4gm IV magnesium sulfate * Repeat daily labs, continue to monitor * Replace as needed (6) Abnormal weight loss: Code(s): R63.4 - Abnormal weight loss Status: Acute Assessment and Plan: * Could be secondary to excessive ETOH intake/chronic pancreatitis * GI/dietary consulted * Encourage to intake more formed foods along w/ pancreatic enzymes (7) Hyponatremia: Code(s): E87.1 - Hypo-osmolality and hyponatremia Status: Acute Assessment and Plan: Likely 2/2 poor oral intake. Encourage oral intake Dc IVF BMP at noon Nephrology consult Plan if he tolerates general diet, will discharge him home. Pain control with gabapentin Discontinue NSAID DS: Summary Hospital Course Reason for hospitalization: Abdominal pain Hospital Course: Per HPI: Willem Woodall is a 59-year-old male with a past medical history of alcohol dependence, hypertension, hepatic steatosis, asthma, migraines, and mood disorder who presents to the hospital with abdominal pain. Patient reports a longstanding history of alcohol abuse and typically drinks about half a pint of Radha but reports that he has not had any drinks the past 3 days. He states that he has been having nausea and upper abdominal discomfort for the past several months, worse over the past few days. Also endorsing associated nausea. Reports that he does not eat very much as he gets full quickly and has lost over 40 lb over the past few months. Denies any chest pain, shortness of breath, dysphagia, reflux, regurgitation, or urinary/bowel changes. Also denies any history of constipation or blood in the stool. Endorses cigarette smoking and marijuana use. ED Workup: 98.5? F, 81 pulse rate, 15 respiratory rate, 98% on room air, 169/87 WBC 8.5, HGB 12.9, HCT 39.6, PLT 299, sodium 133, potassium 3.8, carbon dioxide 23, BUN 7, creatinine 0.72, GFR> 60, LFTs WNL, lipase 474 UA: Not indicative of infection Abdomen/pelvis CT: likely acute on chronic pancreatitis, extensive diverticulosis, prostatomegaly, Extensive atherosclerotic disease with segmental occlusion of the left common iliac artery which reconstitutes at the level of the bifurcation and additional severe stenosis at the left common femoral artery Gastroenterology consulted regarding acute on chronic pancreatitis. CT scan showed chronic pseudocyst. Also associated malnutrition with his last alcoholic drink being 3 days prior. Diet has been advanced as tolerated throughout hospitalization. P.r.n. pain meds, fluids and nutrition support has been offered. Pancreatic enzyme replacement has been started with meals. Creon will be continued at time of discharge and patient will be instructed to follow-up with gastroenterology in the outpatient setting for further management. Alcohol cessation advised, plan to continue Protonix 40 mg daily. Diet was advanced as tolerated. Patient did become hyponatremic, dropping from 133->125. Urine creatinine and random sodium obtained and were within normal limits. Patient has been eating appropriately and encouraged to discontinue alcohol use. Sodium increased from 06/16/2027 and patient otherwise hemodynamically stable for discharge. Patient did have some high blood pressures on 03/21 was given 1 time dose of hydralazine and blood pressures have been normal or near normal since then. He will be advised to follow his care physician regarding further management of his hypertensive medications. Plan for discharge in appropriate follow-up with GI in the outpatient setting. Patient is amenable to this plan and amenable to discharge. Status at Discharge Functional status at discharge: uses cane/walker Overall status at discharge: patient is back to baseline Time Spent with Patient Time attestation: Total time spent providing and/or coordinating discharge services: 35 Exam Narrative: APPEARANCE: No acute distress, abdominal discomfort. Poor dentition. EYES: EOMI HEENT: Normocephalic, atraumatic, OMM RESPIRATORY: No respiratory distress Clear to auscultation bilaterally with no r honchi wheezing or rales. CARDIOVASCULAR: RRR, S1 and S2 without murmurs rubs or gallops. ABDOMINAL: Soft, nontender, nondistended, no rebound or guarding MSK: no issues NEURO: Awake and alert. Following commands, speech normal, no focal deficits SKIN:: Warm, dry. No rashes lesions or abrasions PSYCHIATRIC: Congrent mood DS: Data Data Completed and Pending Labs on day of discharge: Labs from last 24 hours 03/05/25 03/05/25 03/05/25 05:59 05:42 05:42 WBC 7.4 RBC 3.25 L Hgb 11.1 L Hct 33.5 L MCV 103.1 H MCH 34.2 H MCHC 33.1 RDW 13.5 Plt Count 307 MPV 10.1 Immature Gran % (Auto) 0.4 Neut % (Auto) 61.5 Lymph % (Auto) 20.2 [place] % (Auto) 16.2 H Eos % (Auto) 1.3 Baso % (Auto) 0.4 Lymph # (Auto) 1.50 [place] # (Auto) 1.2 H Eos # (Auto) 0.1 Baso # (Auto) 0.0 Abs Immat Gran (auto) 0.03 Absolute Neuts (auto) 4.6 Absolute Nucleated RBC 0.000 Nucleated RBC % 0.0 Sodium 128 L Potassium 4.0 Chloride 93 L Carbon Dioxide 28 Anion Gap 7 BUN 3 L Creatinine 0.63 L Estim Creat Clear Calc 94 Estimated GFR > 60 Glucose 85 Calcium 8.1 L Phosphorus 3.3 Total Bilirubin 0.5 AST 55 ALT 13 Alkaline Phosphatase 78 Total Protein 7.1 Total Protein (PEP) Pending Albumin 3.3 L Albumin (PEP) Pending Globulin (PEP) Pending Albumin/Globulin Ratio Pending [id number] Pending [id number]-[id number] Pending Beta Globulins Pending Gamma Globulins Pending TSH (Reflex) Pending Random Cortisol 11.00 U Random Total Protein 12 Ur Random Sodium 33 Ur Random Urea < 67 Urine Creatinine 10.8 10.9 Protein/Creat Ratio 2 1.11 H Urine Total Protein Pending Urine Albumin (PEP) Pending U [id number] Pending U Ctyov-[id number] Pending U Beta Globulin Pending U Gamma Globulin Pending U Random M-Maurizio (%) Pending Pr Electrophoresis MSpike Pending Discharge Plan Discharge Attending physician on discharge: Homer Christianson Oca Consulting providers: Gilmar Mcbride; Jenifer Riggins Discharging Clinician: Gilmar Mcbride Anticipated Discharge Date/Time: 03/05/25 10:18 Patient Disposition: Home Activity: as tolerated Diet: regular Discharge Instructions: Discharge disposition: Home Take medications as prescribed You will be given blood work orders to be done in 3 days to check your sodium levels. Obtain this at a location of your choosing. Monitor blood pressures Take caution while standing, rising, or moving Change positions slowly taking a break between each position change If when standing you feel dizzy, sit back down and take a break Encouraged to continue with yearly vaccinations Return to the emergency department if you develop sudden shortness of breath, chest pain, nausea, vomiting, upset stomach or intractable diarrhea Return to the emergency department if you develop fever greater than 101.5 Follow-up with your primary care physician within 1-2 weeks. Discuss with your primary care provider regarding possible adjustments to your hypertension medications. Follow up with Dr. Bocanegra with GI for an MRCP in a few weeks. Continue taking your Creon three times daily with meals until you are able to follow up with Dr. Bocanegra. Thank you for choosing [facility] for your healthcare needs Patient Instructions: Antibiotic Form Patient Language: Andorran Stand Alone Forms: General Discharge Information Follow-up/Referrals: Kaela,Raghu Sanches MD [Primary Care Provider, Unknown] Doug Luciano MD [Physician, Gastroenterology] Discharge Medications: New Creon 12,000-38,000 -60,000 unit Capsule,Delayed Release(Dr/Ec) 5 cap PO TIDWM Qty: 90 0RF Continued albuterol sulfate 2.5 mg /3 mL (0.083 %) solution for nebulization 2.5 mg inhalation Q4-6H PRN (Reason: shortness of breath or wheezing) multivitamin Tablet 1 tablet PO DAILY Tudorza Pressair 400 mcg/actuation aerosol powdr breath activated 1 inh inhalation Q12H Qty: 1 12RF albuterol sulfate [Ventolin HFA] 90 mcg/actuation HFA aerosol inhaler 2 inh inhalation Q4H PRN (Reason: shortness of breath or wheezing) Qty: 8.5 12RF nicotine 21-14-7 mg/24 hr patch, TD daily, sequential 1 patch transdermal DAILY Qty: 56 2RF nicotine 21 mg/24 hr patch 24 hour 1 patch transdermal DAILY Qty: 28 0RF Rx Instructions: Start with 42 mg daily for 4 weeks then wean per protocol. losartan 50 mg tablet 50 mg PO DAILY oxycodone-acetaminophen 7.5-325 mg tablet 1 tablet PO BID PRN (Reason: pain) Other Ambulatory Orders: Basic Metabolic Panel (Routine) Timeframe: 3 Days Location: Determined by Patient Ordered By: Gilmar Mcbride Date of admission: 03/01/25 10:15 Primary Care Provider: Kaela,Raghu Sanches Admitting Provider: Homer Christianson Oca Attending physician on admission: Homer Christianson Oca Condition: Stable Quality VTE Prophylaxis VTE prophylaxis: mechanical ordered
[2025-03-05 10:45] LABS: Thyroid Stimulating Hormone Reflex 6.450 uIU/mL (0.465-4.68)
[2025-03-05 13:44] LABS: Free T4 Free Thyroxine Reflex 1.30 ng/dL (0.78-2.19)
[2025-03-05 15:02] LABS: Total Triiodothyronine (T3) 0.99 NG/ML (0.82-1.58)
[2025-03-06 05:08] LABS: ALT (SGPT) P5P 8 IU/L (0-55); AST (SGOT) P5P 17 IU/L (0-40); Alpha 2-Macroglobulins, Qn 256 mg/dL (110-276); Bilirubin, Total 0.2 mg/dL (0.0-1.2); Cholesterol, Total 103 mg/dL (100-199); GGT 60 IU/L (0-65); Glucose 65 mg/dL (70-99); Triglycerides 65 mg/dL (0-149)
[2025-03-06 05:08] LABS: Osmolality, Urine 422 mOsmol/kg (.)
[2025-03-06 06:08] LABS: Osmolality, Serum 264 mOsmol/kg (280-301)
[2025-03-06 15:09] LABS: Albumin 2.7 g/dL (2.9-4.4); Alpha-1-Globulin 0.3 g/dL (0.0-0.4); Alpha-2-Globulin 0.8 g/dL (0.4-1.0); Gamma Globulin 1.7 g/dL (0.4-1.8)
[2025-03-07 14:08] LABS: Albumin, U 20.2 % (.); Alpha-1-Globulin, U 11.6 % (.); Alpha-2-Globulin, U 17.4 % (.); Beta Globulin, U 28.6 % (.); Gamma Globulin, U 22.2 % (.)
== END 2025-03-05 12:58 | disposition home or self-care (01) | DRG 438 ==
LOC: ANHED 16:07 → ANH3MEDSUR 16:51
PROVIDERS: General Practice; Internal Medicine Nephrology; Nurse Practitioner Family; Student in an Organized Health Care Education/Training Program; Admitting Provider Student in an Organized Health Care Education/Training Program; Emergency Provider Emergency Medicine; PCP Internal Medicine; Visit Provider Physician Assistant
DX: K85.90 Acute pancreatitis without necrosis or infection, unspecified (principal); E43 Unspecified severe protein-calorie malnutrition; Z68.1 Body mass index [BMI] 19.9 or less, adult; E87.1 Hypo-osmolality and hyponatremia; K86.1 Other chronic pancreatitis; I10 Essential (primary) hypertension; I73.9 Peripheral vascular disease, unspecified; E83.42 Hypomagnesemia; J45.909 Unspecified asthma, uncomplicated; D53.9 Nutritional anemia, unspecified; K76.0 Fatty (change of) liver, not elsewhere classified; K57.30 Diverticulosis of large intestine without perforation or abscess without bleeding; R63.4 Abnormal weight loss; R19.7 Diarrhea, unspecified; R68.81 Early satiety; F10.20 Alcohol dependence, uncomplicated; F32.A Depression, unspecified; F39 Unspecified mood [affective] disorder; F12.90 Cannabis use, unspecified, uncomplicated; F17.210 Nicotine dependence, cigarettes, uncomplicated
CPT/HCPCS: 36415; 71046; 74177; 80048; 80053; 80074; 80307; 81001; 82172; 82247; 82274; 82465; 82533; 82570; 82947; 82977; 83010; 83036; 83540; 83550; 83690; 83735; 83883; 83930; 83935; 84100; 84145; 84155; 84156; 84165; 84166; 84300; 84439; 84443; 84450; 84460; 84478; 84480; 84540; 85025; 85610; 85652; 86140; 86703; 93005; 94640; 96361; 96374; 96375; 96376; 99285; A9270; G0378; G0432; J0360; J0612; J1171; J2405; J2470; J3411; J3475; J7120; Q9967